=== PATIENT | female | born 1965 | race Caucasian/White ===

== ENCOUNTER 2020-10-05 10:09 | Outpatient (REF) | payer BC, SELFPAY ==
--- NOTE | 2020-10-05 10:14 | MM_ITS ---
EXAMINATION: MM SCREENING DIGITAL BREAST TOMOSYNTHESIS, BILATERAL CLINICAL INFORMATION: Screening. Asymptomatic. The lifetime risk of breast cancer based on the Tyrer-Cuzick Model is 7.6%. COMPARISON: Mammography: June 08, 2019 and studies dating back to June 12, 2011 TECHNIQUE: Digital breast tomosynthesis is performed in both the craniocaudal and mediolateral oblique views along with computer-aided detection (CAD). Synthesized 2D images are generated from the tomosynthesis. FINDINGS: The breasts are heterogeneously dense, which may obscure small masses (ACR BI-RADS breast composition Category c). There are no significant masses, abnormal calcifications, or other abnormalities. MM/MM tomosynthesis screening BI IMPRESSION: There are no significant changes from prior study. ASSESSMENT: BI-RADS 1: Negative RECOMMENDATION: Routine annual mammography screening. This patient's information was entered into a reminder system with a target due date for their next mammogram.
== END 2020-10-05 10:10 | disposition home or self-care (01) ==
LOC: HO.MAMMO 10:09
PROVIDERS: PCP Internal Medicine; Visit Provider Internal Medicine
DX: Z12.31 Encounter for screening mammogram for malignant neoplasm of breast (principal)
CPT/HCPCS: 77063; 77067

== ENCOUNTER 2021-11-20 11:35 | Outpatient (REF) | payer BC, SELFPAY ==
--- NOTE | ~2021-11-20 | MM_ITS ---
EXAMINATION: MM SCREENING DIGITAL BREAST TOMOSYNTHESIS, BILATERAL CLINICAL INFORMATION: Screening. Asymptomatic. The lifetime risk of breast cancer based on the Tyrer-Cuzick Model is 6%. COMPARISON: Mammography: 10/05/2020, 06/08/2019, 06/02/2018, 05/09/2017 TECHNIQUE: Digital breast tomosynthesis is performed in both the craniocaudal and mediolateral oblique views along with computer-aided detection (CAD). Synthesized 2D images are generated from the tomosynthesis. FINDINGS: There are scattered areas of fibroglandular density (ACR BI-RADS breast composition Category b). There are no significant masses, abnormal calcifications, or other abnormalities. There are scattered shifting fibroglandular parenchymal densities overall similar to prior studies. No developing density or architectural abnormality There are no significant changes. MM/MM tomosynthesis screening BI IMPRESSION: No mammographic evidence of malignancy. ASSESSMENT: BI-RADS 1: Negative RECOMMENDATION: Routine annual mammography screening. This patient's information was entered into a reminder system with a target due date for their next mammogram.
== END 2021-11-20 11:36 | disposition home or self-care (01) ==
LOC: HO.MAMMO 11:35
PROVIDERS: PCP Internal Medicine; Visit Provider Internal Medicine
DX: Z12.31 Encounter for screening mammogram for malignant neoplasm of breast (principal)
CPT/HCPCS: 77063; 77067

== ENCOUNTER 2022-01-19 09:31 | Outpatient (REF) | payer BC, SELFPAY ==
[2022-01-19 11:27] LABS: Hematocrit 43.9 % (37.0-47.0); Hemoglobin 14.4 g/dl (12.0-16.0); Mean Corpuscular HGB Conc 32.8 g/dl (31.0-35.0); Mean Corpuscular Hemoglobin 29.3 pg (27.0-33.0); Mean Corpuscular Volume 89.4 fL (80.0-98.0); Platelet Count 233 X10*3/uL (160-400); Red Blood Count 4.91 X10*6/uL (4.20-5.50); Red Cell Distribution Width 11.9 % (11.0-16.0); White Blood Count 3.6 X10*3/uL (4.8-10.8)
[2022-01-19 11:42] LABS: Alanine Aminotransferase 15 U/L (0-31); Albumin Level 4.6 g/dL (3.5-5.0); Alkaline Phosphatase 116 U/L (39-117); Anion Gap 12 (12-20); Aspartate Amino Transferase 19 U/L (5-31); Bilirubin Direct 0.2 mg/dL (0.0-0.5); Bilirubin Total 0.5 mg/dL (0.0-1.0); Blood Urea Nitrogen 23 mg/dL (9-16); Carbon Dioxide 26 mmol/L (22-29); Chloride 107 mmol/L (96-108); Cholesterol 196 mg/dL; Estimated Glomerular Filt Rate 54; Glucose Random 97 mg/dL (60-115); HDL Cholesterol 46 mg/dL; LDL Cholesterol Calculated 132 mg/dl; Potassium 4.5 mmol/L (3.3-5.1); Sodium 140 mmol/L (135-145); Triglycerides 93 mg/dL
[2022-01-19 12:08] LABS: Thyroid Stimulating Hormone 1.04 uIU/mL (0.32-4.0)
== END 2022-01-19 09:32 | disposition home or self-care (01) ==
LOC: HO.HMGCLDS 09:31
PROVIDERS: Visit Provider Internal Medicine
DX: Z00.00 Encounter for general adult medical examination without abnormal findings (principal); G35 Multiple sclerosis
CPT/HCPCS: 36415; 80048; 80061; 80076; 84443; 85027

== ENCOUNTER 2022-12-24 14:59 | Outpatient (REF) | payer BC, SELFPAY ==
--- NOTE | ~2022-12-24 | MM_ITS ---
EXAMINATION: MM SCREENING DIGITAL BREAST TOMOSYNTHESIS, BILATERAL CLINICAL INFORMATION: Screening. Asymptomatic. The lifetime risk of breast cancer based on the Tyrer-Cuzick Model is 6%. COMPARISON: Mammography: 11/20/2021, 10/05/2020, 05/19/2019 TECHNIQUE: Digital breast tomosynthesis is performed in both the craniocaudal and mediolateral oblique views along with computer-aided detection (CAD). Synthesized 2D images are generated from the tomosynthesis. FINDINGS: There are scattered areas of fibroglandular density (ACR BI-RADS breast composition Category b). There are no significant masses, abnormal calcifications, or other abnormalities. No architectural abnormality or developing density or significant change from prior studies. The axilla and skin contours are unremarkable. MM/MM tomosynthesis screening BI IMPRESSION: No mammographic evidence of malignancy. ASSESSMENT: BI-RADS 1: Negative RECOMMENDATION: Routine annual mammography screening. This patient's information was entered into a reminder system with a target due date for their next mammogram.
== END 2022-12-24 15:00 | disposition home or self-care (01) ==
LOC: HO.MAMMO 14:59
PROVIDERS: Visit Provider Internal Medicine
DX: Z12.31 Encounter for screening mammogram for malignant neoplasm of breast (principal)
CPT/HCPCS: 77063; 77067

== ENCOUNTER 2023-12-30 13:15 | Outpatient (REF) | payer BC, SELFPAY | END 2023-12-30 13:16 | disposition home or self-care (01) | LOC: HO.MAMMO 13:15 | PROVIDERS: Visit Provider Internal Medicine | DX: Z12.31 Encounter for screening mammogram for malignant neoplasm of breast (principal) | CPT/HCPCS: 77063; 77067 ==

== ENCOUNTER → 2023-12-30 14:30 | Outpatient (BNV) | payer BC, SELFPAY | PROVIDERS: Visit Provider Radiology Diagnostic Radiology | DX: Z12.31 Encounter for screening mammogram for malignant neoplasm of breast (principal) | CPT/HCPCS: 77063; 77067 ==

== ENCOUNTER 2024-01-23 15:28 | Outpatient (AMB) | payer BC, SELFPAY ==
--- NOTE | 2024-01-23 15:32 | MHC.PC.OV ---
Vital Signs 01/23/24 15:34 Height 5 ft 4 in Weight 124 lb 8 oz BMI 21.4 BP 110/66 Blood Pressure Location Lt brachial Position Sitting Pulse 88 Pulse Source Pulse Oximeter Pulse Oximetry (%) 99 Oxygen Delivery Method Room Air Intake Visit Reasons: Annual Exam Intake Note: Patient is here today for a physical. Drier Tender Required: No Chief Crew Scheduler: Present Accompanied by: Spouse Allergies metoclopramide [From Reglan] Allergy (Mild, Verified 01/26/24 10:12) RASH pantoprazole [From Protonix] Allergy (Mild, Verified 01/26/24 10:12) RASH pollen extracts [POLLEN] Allergy (Mild, Verified 01/26/24 10:12) SNEEZING,ITCHING,WATERY EYES adhesive tape Allergy (Unknown, Verified 01/26/24 10:12) RASH amoxicillin [Augmentin] Allergy (Unknown, Verified 01/26/24 10:12) vomiting bloody foam cephalexin [From KEFLEX] Allergy (Unknown, Verified 01/26/24 10:12) RASH, ITCHY clavulanic acid [Augmentin] Allergy (Unknown, Verified 01/26/24 10:12) vomiting bloody foam latex [LATEX] Allergy (Unknown, Verified 01/26/24 10:12) RASH shellfish derived Allergy (Unknown, Verified 01/26/24 10:12) RASH/NAUSEA & VOMITING Sulfa (Sulfonamide Antibiotics) Allergy (Unknown, Verified 01/26/24 10:12) rash sulfamethoxazole [From Bactrim] Allergy (Unknown, Verified 01/26/24 10:12) RASH trimethoprim [From Bactrim] Allergy (Unknown, Verified 01/26/24 10:12) RASH ciprofloxacin [From Cipro] Adverse Reaction (Unknown, Verified 01/26/24 10:12) SWEATING, LIGHT HEADEDNESS, NAUSEA, DOUBLE VISION Latex Allergy (Unknown, Uncoded 01/26/24 10:12) hives Medication List - Last Reconciled 01/26/24 by Keyur Hendrix MD albuterol sulfate 90 mcg/actuation (ProAir HFA) 2 puffs inhalation Q6H PRN ocrelizumab mg IV Tobacco use date assessed: 01/23/24 Dental Screening Dental Screen Date: 01/23/24 Did you have a dental visit in the last 12 months?: Yes Did you have a dental problem in the last 6 months where you did not have access to dental care?: No Was dental information given to patient?: Patient has dentist HPI Annual Exam HPI Details 58 year old female presents to the office requesting an annual physical. Multiple Sclerosis is stable with no neurological worsening in the past year. Continues Ocrevus infusions. Sleep patterns are stable. No incontinence to urine. Vision is stable with no worsening. Requesting a Cologard. [facility] Medical History Multiple sclerosis Surgical History History of biopsy History of D&C H/O right breast biopsy History of appendectomy History of section History of wisdom tooth extraction Family History Father Colon cancer Past heart attack Hypertension Mother Hyperlipidemia Brother No problems noted. Sister No problems noted. Social History Housing: House Alcohol intake: never Patient Tobacco Use Status: Never used Tobacco e-Cigarette/Vaping Use: Never Used Second Hand Smoke Exposure: No service: No Current occupational status: disabled Cognitive needs: Yes (cane) Hearing needs: No Vision needs: No Questionnaire PHQ-9 Over the last 2 weeks, how often have you been bothered by any of the following problems? 1. Little interest or pleasure in doing things: not at all 2. Feeling down, depressed, or hopeless: not at all 3. Trouble falling or staying asleep, or sleeping too much: not at all 4. Feeling tired or having little energy: not at all 5. Poor appetite or overeating: not at all 6. Feeling bad about yourself - or that you are a failure or have let yourself or your family down: not at all 7. Trouble concentrating on things, such as reading the newspaper or watching television: not at all 8. Moving or speaking so slowly that other people could have noticed. Or the opposite - being so fidgety or restless that you have been moving around a lot more than usual: not at all 9. Thoughts that you would be better off or of hurting yourself in some way: not at all Total score: 0 Depression Screening Interpretation: Negative Depression Screening Done: Yes Source: Developed by Miri Luna Kurt Kroenke and colleagues, with an educational nicolette from [employer]. Thrive Questionnaire Date Thrive assessed: 01/23/24 I am a: Patient What is your living situation today?: I have a steady place to live Within the past 12 months, did the food you bought not last and you didn't have the money to get more?: Never true Within the past 12 months, did you worry whether your food would run out before you got money to buy more?: Never true Do you have trouble paying for medicines?: No Do you have trouble getting transportation to medical appointments?: No Do you have trouble paying your heating and electricity bill?: No Do you have trouble taking care of your child, family member or friend?: No Do you have trouble with day-to-day activities such as bathing, preparing meals, shopping, managing finances, etc.?: No Are you currently unemployed and looking for a job?: No Are you interested in more education?: No Currently or been in a relationship where the following occur: no concerns reported THRIVE Score: 0 AUDIT C Alcohol Use Questionnaire (AUDIT-C) 1. How often do you have a drink containing alcohol?: Never Total Score: 0 CHRISTIANO-7 AMB Questionnaire CHRISTIANO-7 Date CHRISTIANO - 7 assessed: 01/23/24 Feeling nervous, anxious, or on edge: 0 = Not at all Not being able to stop or control worryin = Not at all Worrying too much about different things: 0 = Not at all Trouble relaxin = Not at all Being so restless that it is hard to sit still: 0 = Not at all Becoming easily annoyed or irritable: 0 = Not at all Feeling afraid as if something awful might happen: 0 = Not at all Total CHRISTIANO-7 score (0-4 normal; 5-9 mild; 10-14 moderate; 15-21 severe): 0 Source: Developed by Miri Luna Kurt Kroenke and colleagues, with an educational nicolette from [employer]. Physical exam (Primary Care) Vital Signs: Last Vital Signs Pulse 88 01/23/24 15:34 BP 110/66 01/23/24 15:34 Pulse Ox 99 01/23/24 15:34 Oxygen Delivery Method Room Air 01/23/24 15:34 Care Plan Goal for BP management: BP is in range. BMI result Body Mass Index 21.4 Tobacco/Smoking Status: Tobacco use Status Tobacco use date assessed 01/23/24 01/23/24 15:39 Patient Tobacco Use Status Never used Tobacco 01/23/24 15:39 e-Cigarette/Vaping Use Never Used 01/23/24 15:39 PHQ-9: PHQ-9 Score PHQ-9: Total score 0 01/23/24 15:39 Depression Screening Interpretation: Negative Thrive Assessment: Date of Thrive Assessment Date Thrive assessed 01/23/24 01/23/24 15:39 Currently or been in a relationship where the following occur: no concerns reported Advance Care Planning discussion: Exists, not on file Date of discussion: 01/23/24 Forms completed: Health Care Proxy and MOLST Time spent: 1-15 minutes, not on file Const Other: Ambulates using a cane General: cooperative and healthy appearing Nutritional Appearance: well nourished Orientation/consciousness: patient oriented x3 Limitations: no limitations HENMT Head: Yes normal to inspection Eyes General: appearance normal, both eyes and all related structures Neck Neck: Yes normal visual inspection Chest Chest palpation & inspection: normal palpation of entire chest wall Resp Effort & Inspection: normal respiratory effort Neuro General: patient oriented x3 Assessment and Plan Assessment & Plan (1) Multiple sclerosis: Code(s): G35 - Multiple sclerosis Plan: Condition is stable. Continue to see the neurologist and Ocrevus infusion. (2) Annual physical exam: Code(s): Z00.00 - Encounter for general adult medical examination without abnormal findings Plan: Cologard ordered. Upto date on mammogram. Orders: Orders Basic Metabolic Panel 01/23/24 G35 - Multiple sclerosis Complete Blood Count no Diff 01/23/24 G35 - Multiple sclerosis Lipid Panel 01/23/24 G35 - Multiple sclerosis UA and rflx microscopic 01/23/24 G35 - Multiple sclerosis Liver Panel 01/23/24 G35 - Multiple sclerosis Thyroid Stimulating Hormone 01/23/24 G35 - Multiple sclerosis Referrals Cologuard Test Z12.11 - Encounter for screening for malignant neoplasm of colon Coding Level of Care Code Est Pt Prev Care 40-64y(43858) Diagnoses Multiple sclerosis G35 Annual physical exam Z00.00 Additional Codes Vital Signs *Quality* - Advance Care Planning discussion: Exists, not on file ([id number]) Vital Signs *Quality* - Time spent: 1-15 minutes, not on file ([id number])
[2024-01-23 15:34] VITALS: BP 110/66; PULSE 88; O2SAT 99; BMI 21.4
== END 2024-01-23 15:54 | disposition home or self-care (01) ==
PROVIDERS: Visit Provider Internal Medicine
DX: G35 Multiple sclerosis (principal); Z00.00 Encounter for general adult medical examination without abnormal findings
CPT/HCPCS: 1123F; 1124F; 99396

== ENCOUNTER 2024-01-29 10:59 | Outpatient (AMB) | payer BC, SELFPAY ==
--- NOTE | 2024-01-29 11:04 | AM.OFFWIN_ITS ---
Intake Vital Signs 01/29/24 11:05 Height 5 ft 4 in Weight 124 lb BMI 21.3 BP 130/70 Blood Pressure Location Lt brachial Position Sitting Pulse 90 Pulse Source Pulse Oximeter Temp 97.8 F Temp Source Temporal Artery Scan Pulse Oximetry (%) 98 Oxygen Delivery Method Room Air Intake Visit Reasons: EST/right foot pain (lobby) Intake Note: pt is here today for rt foot pain started saturday Patient Tobacco Use Status: Never used Tobacco Allergies metoclopramide [From Reglan] Allergy (Mild, Verified 01/29/24 11:09) RASH pantoprazole [From Protonix] Allergy (Mild, Verified 01/29/24 11:09) RASH pollen extracts [POLLEN] Allergy (Mild, Verified 01/29/24 11:09) SNEEZING,ITCHING,WATERY EYES adhesive tape Allergy (Unknown, Verified 01/29/24 11:09) RASH amoxicillin [Augmentin] Allergy (Unknown, Verified 01/29/24 11:09) vomiting bloody foam cephalexin [From KEFLEX] Allergy (Unknown, Verified 01/29/24 11:09) RASH, ITCHY clavulanic acid [Augmentin] Allergy (Unknown, Verified 01/29/24 11:09) vomiting bloody foam latex [LATEX] Allergy (Unknown, Verified 01/29/24 11:09) RASH shellfish derived Allergy (Unknown, Verified 01/29/24 11:09) RASH/NAUSEA & VOMITING Sulfa (Sulfonamide Antibiotics) Allergy (Unknown, Verified 01/29/24 11:09) rash sulfamethoxazole [From Bactrim] Allergy (Unknown, Verified 01/29/24 11:09) RASH trimethoprim [From Bactrim] Allergy (Unknown, Verified 01/29/24 11:09) RASH ciprofloxacin [From Cipro] Adverse Reaction (Unknown, Verified 01/29/24 11:09) SWEATING, LIGHT HEADEDNESS, NAUSEA, DOUBLE VISION Latex Allergy (Unknown, Uncoded 01/26/24 10:12) hives Do you need a note to return to daycare/school/sports/work: No HPI HPI Comments History of Present Illness Details 58 y/o female patient who presents to [facility] with c/o right foot pain. Reports Saturday she was going down the stairs and tripped and twisted her foot. Reports swelling and tenderness. She has not taken any Pain medications because she is allergic to most pain medications. [facility] Medical History Multiple sclerosis Surgical History History of biopsy History of D&C H/O right breast biopsy History of appendectomy History of section History of wisdom tooth extraction Family History Father Colon cancer Past heart attack Hypertension Mother Hyperlipidemia Brother No problems noted. Sister No problems noted. Social History Housing: House Alcohol intake: never Patient Tobacco Use Status: Never used Tobacco e-Cigarette/Vaping Use: Never Used Second Hand Smoke Exposure: No service: No Current occupational status: disabled Cognitive needs: Yes (cane) Hearing needs: No Vision needs: No Review of Systems Const All systems reviewed & are unremarkable except as noted in HPI and below Physical Exam Vital Signs: Last Vital Signs Temp 97.8 F 01/29/24 11:05 Pulse 90 01/29/24 11:05 BP 130/70 01/29/24 11:05 Pulse Ox 98 01/29/24 11:05 Oxygen Delivery Method Room Air 01/29/24 11:05 BMI result Body Mass Index 21.3 Const General: comfortable and no acute distress Orientation/consciousness: patient oriented x3 Neuro Other: Walks with a cane - h/o MS General: patient oriented x3 and moves all extremities Extrem Right lower extremity: ankle Details: normal to inspection, tenderness, no edema and normal ROM and foot Details: normal capillary refill, normal to inspection, tenderness and toes with normal ROM; no unusual warmth, edema noted and no ecchymosis Left lower extremity: normal to inspection and full ROM Psych Speech and movement: Normal speech and movement present Assessment & Plan Assessment & Plan (1) Right foot pain: Code(s): M79.671 - Pain in right foot Plan: - Xray right foot - IceHot - Sprain/Strain Orders: Orders XR foot RT min 3V Today M79.671 - Pain in right foot Coding Level of Care Code Est Pt Level 3 (69865) Diagnoses Right foot pain M79.671 Time Spent (min) 15
[2024-01-29 11:05] VITALS: BP 130/70; PULSE 90; TEMP 36.6; O2SAT 98; BMI 21.3
== END 2024-01-29 12:01 | disposition home or self-care (01) ==
PROVIDERS: PCP Internal Medicine; Visit Provider Nurse Practitioner Family
DX: M79.671 Pain in right foot (principal)
CPT/HCPCS: 99213

== ENCOUNTER 2024-01-29 11:35 | Outpatient (REF) | payer BC, SELFPAY ==
--- NOTE | ~2024-01-29 | XR_ITS ---
EXAMINATION: XR FOOT, RIGHT CLINICAL INFORMATION: Right foot pain following a twisting injury. COMPARISON: None available. TECHNIQUE: AP, lateral, and oblique views of the right foot. FINDINGS: The bones and soft tissues are normal. No fracture. Alignment is anatomic. Joint spaces are maintained. XR/XR foot RT min 3V IMPRESSION: Unremarkable examination.
== END 2024-01-29 11:36 | disposition home or self-care (01) ==
LOC: HO.HMGCX 11:35
PROVIDERS: Visit Provider Nurse Practitioner Family
DX: M79.671 Pain in right foot (principal)
CPT/HCPCS: 73630

== ENCOUNTER 2024-02-25 10:39 | Outpatient (AMB) | payer BC, SELFPAY ==
--- NOTE | 2024-02-25 10:51 | A.OFFPC_ITS ---
Vital Signs 02/25/24 10:52 Height 5 ft 4 in Weight 126 lb BMI 21.6 BP 120/64 Blood Pressure Location Lt brachial Position Sitting Pulse 72 Pulse Source Pulse Oximeter Pulse Oximetry (%) 99 Oxygen Delivery Method Room Air Intake Visit Reasons: R foot injury/ Podiatry referral Intake Note: Patient is here to follow up on Right foot injury a month ago, requesting referral to Podiatry. Supervisor Crack Off Required: No Parts Remover: Present Accompanied by: Spouse Allergies metoclopramide [From Reglan] Allergy (Mild, Verified 02/28/24 12:32) RASH pantoprazole [From Protonix] Allergy (Mild, Verified 02/28/24 12:32) RASH pollen extracts [POLLEN] Allergy (Mild, Verified 02/28/24 12:32) SNEEZING,ITCHING,WATERY EYES adhesive tape Allergy (Unknown, Verified 02/28/24 12:32) RASH amoxicillin [Augmentin] Allergy (Unknown, Verified 02/28/24 12:32) vomiting bloody foam cephalexin [From KEFLEX] Allergy (Unknown, Verified 02/28/24 12:32) RASH, ITCHY clavulanic acid [Augmentin] Allergy (Unknown, Verified 02/28/24 12:32) vomiting bloody foam latex [LATEX] Allergy (Unknown, Verified 02/28/24 12:32) RASH shellfish derived Allergy (Unknown, Verified 02/28/24 12:32) RASH/NAUSEA & VOMITING Sulfa (Sulfonamide Antibiotics) Allergy (Unknown, Verified 02/28/24 12:32) rash sulfamethoxazole [From Bactrim] Allergy (Unknown, Verified 02/28/24 12:32) RASH trimethoprim [From Bactrim] Allergy (Unknown, Verified 02/28/24 12:32) RASH ciprofloxacin [From Cipro] Adverse Reaction (Unknown, Verified 02/28/24 12:32) SWEATING, LIGHT HEADEDNESS, NAUSEA, DOUBLE VISION Latex Allergy (Unknown, Uncoded 02/28/24 12:32) hives Medication List - Last Reconciled 02/28/24 by Keyur Hendrix MD albuterol sulfate 90 mcg/actuation (ProAir HFA) 2 puffs inhalation Q6H PRN ocrelizumab mg IV Tobacco use date assessed: 02/25/24 Dental Screening Dental Screen Date: 01/23/24 HPI R foot injury/ Podiatry referral HPI Details 58-year-old female presents to the [facility] to discuss her medical condition. One month ago, while climbing the stairs at home she hit her right foot against the riser. The floor and stairs were carpeted. Subsequently patient has been feeling pain on the top of her foot. She was seen in the urgent care center, x- rays were negative. Patient continues to have pain when she bears weight on the right foot. [facility] Medical History Multiple sclerosis Surgical History History of biopsy History of D&C H/O right breast biopsy History of appendectomy History of section History of wisdom tooth extraction Family History Father Colon cancer Past heart attack Hypertension Mother Hyperlipidemia Brother No problems noted. Sister No problems noted. Social History Housing: House Alcohol intake: never Patient Tobacco Use Status: Never used Tobacco e-Cigarette/Vaping Use: Never Used Second Hand Smoke Exposure: No service: No Current occupational status: disabled Cognitive needs: Yes (cane) Hearing needs: No Vision needs: No Questionnaire Thrive Questionnaire Date Thrive assessed: 01/23/24 CHRISTIANO-7 AMB Questionnaire CHRISTIANO-7 Date CHRISTIANO - 7 assessed: 01/23/24 Source: Developed by Drs. Ludin James, Miri Carrion, Mina Paul and colleagues, with an educational nicolette from [employer]. Physical exam (Primary Care) Vital Signs: Last Vital Signs Pulse 72 02/25/24 10:52 BP 120/64 02/25/24 10:52 Pulse Ox 99 02/25/24 10:52 Oxygen Delivery Method Room Air 02/25/24 10:52 BMI result Body Mass Index 21.6 Tobacco/Smoking Status: Tobacco use Status Tobacco use date assessed 02/25/24 02/25/24 10:57 Patient Tobacco Use Status Never used Tobacco 02/25/24 10:57 e-Cigarette/Vaping Use Never Used 02/25/24 10:57 Thrive Assessment: Date of Thrive Assessment Date Thrive assessed 01/23/24 02/25/24 10:57 Extrem Other: Right foot: Minimal discomfort over the dorsum of the foot. No bruising. All toes can be moved independently without discomfort. Discomfort present over the calcaneal surface. Assessment and Plan Assessment & Plan (1) Contusion, foot: Code(s): S90.30XA - Contusion of unspecified foot, initial encounter Plan: Patient reports that she does not do well with nonsteroidals. I reviewed her x- ray from the urgent care center. Patient does not have any pain when she has not weight-bearing. I suggested that she keep her foot elevated when at home or use a boot. I offered her a boot, patient reported that she has a boot from a previous injury. If symptoms do not improve in 4 weeks, patient was advised to follow-up here. Coding Level of Care Code Est Pt Level 4 (39656) Complex EM visit Add On G2211 Diagnoses Contusion, foot S90.30XA
[2024-02-25 10:52] VITALS: BP 120/64; PULSE 72; O2SAT 99; BMI 21.6
== END 2024-02-25 11:39 | disposition home or self-care (01) ==
PROVIDERS: PCP Internal Medicine; Visit Provider Internal Medicine
DX: S90.30XA Contusion of unspecified foot, initial encounter (principal)
CPT/HCPCS: 99214

== ENCOUNTER 2024-03-05 08:07 | Outpatient (REF) | payer BC, SELFPAY ==
[2024-03-05 10:59] LABS: Hematocrit 41.5 % (37.0-47.0); Hemoglobin 14.1 g/dl (12.0-16.0); Mean Corpuscular Hemoglobin 30.3 pg (27.0-33.0); Mean Corpuscular Volume 89.2 fL (80.0-98.0); Platelet Count 202 X10*3/uL (160-400); Red Blood Count 4.65 X10*6/uL (4.20-5.50); Red Cell Distribution Width 12.2 % (11.0-16.0); White Blood Count 3.4 X10*3/uL (4.8-10.8)
[2024-03-05 11:04] LABS: Appearance Urine Clear; Color Urine Yellow; Glucose Urine UA Negative (Negative); Leukocyte Esterase Urine Negative (Negative); Nitrite Urine Negative (Negative); PH 6.5 (5.0-9.0); Specific Gravity - Urine 1.015 (1.005-1.025); UMIC TRIGGER UA YES; Urine Blood Trace (Negative); Urine Ketones Negative (Negative); Urine Protein Negative (Neg-Trace)
[2024-03-05 11:25] LABS: Alanine Aminotransferase 13 U/L (0-31); Albumin Level 4.4 g/dL (3.5-5.0); Alkaline Phosphatase 126 U/L (39-117); Anion Gap 11 (12-20); Aspartate Amino Transferase 18 U/L (5-31); Bilirubin Direct 0.1 mg/dL (0.0-0.5); Bilirubin Total 0.4 mg/dL (0.0-1.0); Blood Urea Nitrogen 18 mg/dL (9-16); Calcium 9.8 mg/dL (8.4-10.2); Carbon Dioxide 26 mmol/L (22-29); Chloride 109 mmol/L (96-108); Cholesterol 193 mg/dL (<200); Estimated Glomerular Filt Rate > 60; Glucose Random 87 mg/dL (60-115); HDL Cholesterol 42 mg/dL (>40); LDL Cholesterol Calculated 138 mg/dL (<100); Sodium 142 mmol/L (135-145); Total Protein 6.6 g/dL (6.5-8.0); Triglycerides 66 mg/dL (<150)
[2024-03-05 11:41] LABS: Thyroid Stimulating Hormone 1.57 uIU/mL (0.32-4.0)
[2024-03-05 11:42] LABS: Bacteria Urine None Seen (None Seen); Hyaline Casts Urine 0-2 /LPF (0-2); RBC Urine 0-2 /HPF (0-2); Squamous Epithelial Cell Urine 0-2 /HPF (0-2); WBC Urine 0-5 /HPF (0-5)
== END 2024-03-05 08:08 | disposition home or self-care (01) ==
LOC: HO.10HDL 08:07
PROVIDERS: Visit Provider Internal Medicine
DX: G35 Multiple sclerosis (principal)
CPT/HCPCS: 36415; 80048; 80061; 80076; 81001; 81003; 84443; 85027

== ENCOUNTER → 2025-01-15 16:00 | Outpatient (BNV) | payer BC, SELFPAY | PROVIDERS: PCP Internal Medicine; Visit Provider Internal Medicine | DX: Z12.31 Encounter for screening mammogram for malignant neoplasm of breast (principal) | CPT/HCPCS: 77063; 77067 ==

== ENCOUNTER 2025-01-15 16:04 | Outpatient (REF) | payer BC, SELFPAY ==
--- OUTSIDE RECORDS SUMMARY | 2025-01-15 16:06 | XMS_ITS ---
Author Name [facility] Organization Unknown Care Team Organization Name Specialty Phone Email Start Date End [facility]
--- OUTSIDE RECORDS SUMMARY | 2025-01-15 16:06 | XMS_ITS | Encounter Summary ---
Author Organization [facility] Address [address] [place] [address] Care Team Providers Care Chef Name Role Phone Unavailable Primary Care Provider Unavailabl e Encounter Details Date Type Department Care Team (Late st Contact Info) Description 05/28/2023 Scanned Document [facility] GENERAL SURG SCAN General Surgery, Scan Social History Tobacco Use Types Packs/Day Years Used Date Smoking Tobacco: Never Assessed Comments Unknown Sex and Gender Information Value Date Recorded Sex Assigned at Not on file Legal Sex Female 6:59 PM EST Gender Identity Not on file Sexual Orientation Not on file documented as of this encounter Plan of Treatment Not on file documented as of this encounter Visit Diagnoses Not on filedocumented in this encounter
--- OUTSIDE RECORDS SUMMARY | 2025-01-15 16:06 | XMS_ITS | Encounter Summary ---
Author Organization [facility] Address [address] [place] [address] Care Team Providers Care Manager Of Data Name Role Phone Unavailable Primary Care Provider Unavailabl e Encounter Details Date Type Department Care Team (Late st Contact Info) Description 02/19/2019 Scanned Document [address] [id number] Keyur Hendrix MD Social History Tobacco Use Types Packs/Day Years [...]
--- OUTSIDE RECORDS SUMMARY | 2025-01-15 16:07 | XMS_ITS | Encounter Summary ---
Author Organization [facility] Address [address] [place] [address] Care Team Providers Care Hotel Valet Attendant Name Role Phone Keyur Hendrix Primary Care Provider [phone] Encounter Details Date Type Department Care Team (Late st Contact Info) Description 07/18/2021 myChart Message [facility] PB Revenue Cycle Management [address] [place] [address] Mychart, Generic Provider [address] [place] [address] payment plan Social History Tobacco Use Types Packs/Day Years Used Date Smoking Tobacco: Never Smokeless Tobacco: Never Comments:: Comments Unknown Sex and Gender Information Value Date Recorded Sex Assigned at Female 01/30/2021 12:07 PM EDT Legal Sex Female 12:40 PM EDT Gender Identity Female 01/30/2021 12:07 PM EDT Sexual Orientation Straight 01/30/2021 12 :07 PM EDT documented as of this encounter Plan of Treatment Upcoming Encounters Date Type Department Care Team (Late st Contact Info) Description 02/11/2025 8:00 AM EDT Infusion [facility] [address] [place] [address] 04/20/2025 9:00 AM EDT Office Visit [facility] [address] [place] [address] Instructional Technology Director: Chet Villa MD [address], [place] [id number] documented as of this encounter Visit Diagnoses Not on filedocumented in this encounter Care Teams Hotel Valet Attendant Relationship Specialty Start Date End Date Keyur Hendrix [address] [place] [address] [phone] PCP - General Internal Medicine 11/12/18 documented as of this encounter
--- OUTSIDE RECORDS SUMMARY | 2025-01-15 16:07 | XMS_ITS | Encounter Summary ---
Author Organization [facility] Address [address] [place] [address] Care Team Providers Care Transportation Agent Name Role Phone Keyur Hendrix Primary Care Provider +1- [phone] Encounter Details Date Type Department Care Team (Late st Contact Info) Description 10/19/2016 Orders Only [facility] Building [address] [place] [address] 11359 González Bass MD PhD [address] [place] [address] 32611 Social History Tobacco Use Types Packs/Day Years [...] Info) Description 02/11/2025 8:00 AM EDT Infusion [facility] Building Infusion Clinic [address] [place] [address] 55425 04/20/2025 9:00 AM EDT Office Visit [facility] Multiple Sclerosis [facility] [address] [place] [address] [phone] Pole Shaver: Chet Villa MD [address] [place] [address] [phone] documented as of this encounter Visit Diagnoses Not on filedocumented in this encounter Additional Health Concerns Infection Onset Date Last Indicated Resolved Time COVID-19 - Suspected infection 02/04/2020 02/04/2020 02/04/2020 8:55 PM EDT documented as of this encounter Care Teams Transportation Agent Relationship Specialty Start Date End Date Keyur Hendrix [address] [place] [address] [phone] PCP - General Internal Medicine 11/12/18 documented as of this encounter
--- OUTSIDE RECORDS SUMMARY | 2025-01-15 16:07 | XMS_ITS | Encounter Summary ---
Author Organization [facility] Address [address] [place] [address] Care Team Providers Care Hall Manager Name Role Phone Keyur Hendrix Primary Care Provider +1- [phone] Encounter Details Date Type Department Care Team (Late st Contact Info) Description 10/05/2021 Orders Only [facility] [address] [place] [address] [phone] Mor Hardin [facility] Social History Tobacco Use Types Packs/Day Years [...] Info) Description 02/11/2025 8:00 AM EDT Infusion [facility] Infusion Clinic [address] [place] [address] 765[address] 04/20/2025 9:00 AM EDT Office Visit [facility] Multiple Sclerosis Clinic [address] [place] [address] 88623 Fountain Waitress/Waiter: Chet Villa MD [address] [place], [place] [phone] documented as of this encounter Visit Diagnoses Not on filedocumented in this encounter Care Teams Hall Manager Relationship Specialty Start Date End Date Keyur Hendrix [address] [place] [address] [phone] PCP - General Internal Medicine 11/12/18 documented as of this encounter
--- OUTSIDE RECORDS SUMMARY | 2025-01-15 16:07 | XMS_ITS | Referral Summary ---
Author Organization [facility] Address [address] [id number] Care Team Providers Care Healthcare Technician Name Role Phone Keyur Hendrix Primary Care Provider +1- [phone] Encounters Date Type Department Care Team Description 12/04/2024 myChart Message [facility] Sclerosis [facility] [address] [place] [address] [phone] Casing Fluid Tender: Coco Rodriguez MD Following up 11/30/2024 Telephone [facility] [address] [place] [address] [phone] Casing Fluid Tender: Surekha Sullivan LPN 11/18/2024 myChart Message [facility] Building Neurology Clinic [address] [place] [address] [phone] Mychart, Generic Provider MRI schedule from Last 3 Months Allergies Active Allergy Reactions Criticality Noted Date Comments Adhesive Tape-Silicones Rash 11/29/2016 Amoxicillin-Pot Clavulanate Cough up blood 11/29/2016 Confirmed with pt over phone Butalbital-Acetaminophen Rash 06/18/2017 Cephalexin Unknown 11/29/2016 Ciprofloxacin Rash,Diplopia 11/29/2016 Gadolinium-Containing Contrast Media Hives 06/27/2022 Latex Rash 06/18/2017 Latex, Natural Rubber Unknown 11/29/2016 Pantoprazole Rash 11/29/2016 Sulfamethoxazole-Trimethop rim Rash High 11/29/2016 Medications albuterol (PROAIR HFA) 90 mcg inhaler ProAir HFA 108 (90 Base) MCG/ACT Inhalation Aerosol Solution INHALE 2 PUFFS EVERY 4 HOURS NEEDED Quantity: 1; Refills: 11 HERIBERTO DIAZ M.D.; Started 03-Aug-2012 Active 2 Active famotidine (PEPCID) 20 mg tablet Take 1 tablet (20 mg total) by mouth 2 times a day. 6 tablet 03/24/2021 2:53 PM EDT 1 Active ocrelizumab (Ocrevus) 30 mg/mL injection solutionIndica tions:Multiple sclerosis (HCC) Infuse 20 mL (600 mg total) intravenously every 5 months. 20 mL 1 09/04/2024 9:07 AM EST 4 Active predniSONE (DELTASONE) 10 mg tabletIndicati ons:Multiple sclerosis (HCC) Take one tablet by mouth the evening prior to Ocrevus infusion and one tablet by mouth the morning of infusion 2 tablet 4 Active Active Problems Patient Care Coordination No te Formatting of this note migh t be different from the original. Paula Milesdemetrio had her biopsy done at [facility] general surgery.A copy of the report is on your mailbox. Thank you Problem Noted Date Diagnosed Date Right foot pain 03/25/2024 Sebaceous cyst 05/27/2023 Assessment & Plan (10/23/2023 4:19 PM EST): PLAN: 1. Continue to follow-up with dermatology. Assessment & Plan (05/27/2023 11:32 AM EDT): Left posterior thigh sebaceous cyst, approximately 2 x 2 x 3 cm. Mild overlying cellulitis without mature abscess. Patient was advised to perform warm compresses followed by gentle rubbing the area with a sponge pad and antibacterial soap. Gentle manual expression can then be applied to attempt to evacuate the sebum. Surgery is usually unnecessary for this. Patient has immune deficiency and is on prednisone prior to infusion for MS. She is at increased risk for wound complications after surgery, thus she should avoid any unnecessary procedures and surgeries if possible. Follow-up as needed. Gait abnormality 06/23/2020 Assessment & Plan (09/21/2021 12:10 PM EST): PLAN: 1. We discussed physical therapy. Assessment & Plan (02/02/2021 10:36 AM EDT): PLAN: 1. We discussed physical therapy. Assessment & Plan (06/23/2020 11:37 AM EDT): PLAN: 1. We discussed physical therapy. Toxicity associated with cytokine release 2016 Assessment & Plan (07/01/2017 3:27 PM EDT): Pt. Developed infusion reactions with rash that required only benadryl after Ocrevus infusions in May 2017. She is doing well now. 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 We we will continue with ocrelizumab infusions every 5 months. 2. We will obtain MRI of the cervical spine this year. 3. Continue with physical activity. 4. We will obtain immunoglobulin levels to assess her immune status on ocrelizumab. Assessment & Plan (03/18/2023 12:42 PM EDT): PLAN: 1. We we will continue with ocrelizumab infusions every 5 months. 2. We will obtain MRI of the cervical spine next year. 3. Continue with physical activity. 4. We will obtain immunoglobulin levels to assess her immune status on ocrelizumab. Assessment & Plan (09/20/2021 3:16 PM EST): PLAN: 1. We we will continue with ocrelizumab infusions every 5 months and will monitor closely for new/worsening symptoms. We will again discuss escalation of therapy if there is changes on physical examination, symptoms as well as MRIs. 2. We will obtain MRI of the cervical spine in October to evaluate radiological study of her disease due to new lesion seen on prior MRI. 3. Continue with physical activity. Assessment & Plan (02/02/2021 10:36 AM EDT): PLAN: 1. We will continue with Ocreluzimab infusions every 5 months due to goof response to treatment and stability of symptoms. 2. We will obtain MRI of the brain and cervical spine this year to evaluate radiological study of her disease. 3. Continue with physical activity. Assessment & Plan (06/23/2020 11:36 AM EDT): PLAN: 1. We discussed decreasing the interval of ocrelizumab to every 5 months. 2. We also discussed proceeding with 1 g of IV methylprednisolone with the next infusion or earlier treatment if symptoms progress. 3. We will obtain MRI of the brain and cervical spine next year to evaluate radiological study of her disease. 4. Continue with vitamin D supplementation. Assessment & Plan (11/12/2018 11:03 AM EST): Continue current Ocrevus infusion schedule. Prednisone 10 mg the night prior and the morning of. Follow up in [facility] Center in 4 months. Assessment & Plan (07/09/2018 12:37 PM EDT): Continue with current infusion schedule of Ocrevus MRI December 2018 Follow-up in MS clinic in 4 months Prednisone 10 mg oral the evening before Ocrevus and the morning of the infusion. Referral for outpatient PT evaluation for gait training and cane training. Assessment & Plan (03/05/2018 11:15 AM EDT): Keep current Ocrevus schedule Plan for follow up MRI in December 2018 Follow up in 4 months Assessment & Plan (12/11/2017 11:41 AM EDT): Continue Ocrevus infusions as scheduled- will re-schedule as possible depending on biopsy results. MRI brain and C-spine as outpatient Refill for B12 injections sent to pharmacy. Follow up in 4 months Assessment & Plan (08/07/2017 10:53 AM EST): Continue Ocrevus infusions per current schedule Monitor clinically for possible focal post-infusion reactions Follow up in 4 months. Assessment & Plan (07/01/2017 10:23 PM EDT): RRMS Patient received the first Ocrevus 2 infusions. She developed few days after infusion a short transitory left leg sensory-motor lasted 10-15min resolved completely and one episode of diplopia that resolved spontaneously after few min. Most likely this are cytokine release and transmission block in the aresa of prior demyelination. Less likely that this are signs of active relapse. Plan: - monitor clinically. - no need for MRI at this time. - she may have same phenomena with next infusions. - educate patient on infusion related reactions. 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 Continue with vitamin D supplementation. Assessment & Plan (03/18/2023 12:42 PM EDT): PLAN: 1. Continue with vitamin D supplementation. Assessment & Plan (09/20/2021 3:17 PM EST): PLAN: 1. Continue with vitamin D supplementation. Assessment & Plan (02/02/2021 10:36 AM EDT): PLAN: 1. Continue with vitamin D supplementation. Assessment & Plan (06/23/2020 11:36 AM EDT): PLAN: 1. Continue with vitamin D supplementation. Nonspecific immunological findings 09/11/2011 Social History Tobacco Use Types Packs/Day Years Used Date Smoking Tobacco: Never Smokeless Tobacco: Never Tobacco Cessation:Counseling Given: Not Answered Comments:: Comments Unknown Sex and Gender Information Value Date Recorded Sex Assigned at Female 01/30/2021 12:07 PM EDT Legal Sex Female 12:40 PM EDT Gender Identity Female 01/30/2021 12:07 PM EDT Sexual Orientation Straight 01/30/2021 12 :07 PM EDT Last Filed Vital Signs Vital Sign Reading Time Taken Comments Blood Pressure 144/68 09/29/2024 3:55 PM EST Pulse 73 09/29/2024 3:55 PM EST Temperature 36.5 ??C (97.7 ??F) 09/10/2024 2:44 PM ES T Respiratory Rate 18 09/10/2024 2:44 PM EST Oxygen Saturation 96% 09/10/2024 2:44 PM EST Inhaled Oxygen Concentration - - Weight 55.3 kg (122 lb 0.4 oz) 09/10/2024 8:22 AM EST Height 161 cm (5' 3.39 ) 03/18/2023 10:00 AM EDT Body Mass Index 21.35 03/18/2023 10:00 AM EDT Plan of Treatment Upcoming Encounters Date Type Department Care Team (Late st Contact Info) Description 02/11/2025 8:00 AM EDT Infusion [facility] Building Infusion Clinic [address] [place] [address] 80083 04/20/2025 9:00 AM EDT Office Visit [facility] Multiple Sclerosis [facility] [address] [place] [address] 84884 Casing Fluid Tender: Chet Villa MD [address] [place] [address] 50906 Procedures * Due to [facility] law, this organization might not be sharing negative HIV tests. Procedure Name Priority Date/Time Associated Diagnosis Comments HEPATITIS PANEL, ACUTE Routine 04/10/2017 12:22 PM EDT CD4 COUNTS Routine 07/04/2015 2:16 PM EDT from Last 3 Months or Most Recently Relevant to Health Maintenance Results * Due to [facility] law, this organization might not be sharing negative HIV tests. * Hepatitis Panel, Acute (04/10/2017 12:22 PM EDT) Hepatitis A IgM NON-REACTI VE NON-REACT [facility] Hepatitis B Surface Antigen NON-REACTI VE NON-REACT [facility] Hepatitis B Core Antibody NON-REACTI VE NON-REACT [facility] Hepatitis C Antibody NON-REACTI VE NON-REACT [facility] Signal To Cut-Off 0.01 <1.00 [facility] 04/10/2017 12:2 2 PM EDT 04/10/2017 1:14 PM EDT us Norman Scales MD PhD LAB BLOOD ORDERABLES Cherelle argueta Result [facility] [address] [facility] [address] Floor, [place] [address], [place] [phone] from Last 3 Months or Most Recently Relevant to Health Maintenance Insurance [facility] HMO/POS Care Teams Healthcare Technician Relationship Specialty Start Date End Date Keyur Hendrix [address] [place] [address] PCP - General Internal Medicine 11/12/18
--- OUTSIDE RECORDS SUMMARY | 2025-01-15 16:07 | XMS_ITS | Encounter Summary ---
Author Organization [facility] Address [address] [place] [address] Care Team Providers Care Publishing Director Name Role Phone Keyur Hendrix Primary Care Provider +1- [phone] Encounter Details Date Type Department Care Team (Late st Contact Info) Description 03/05/2017 Orders Only [facility] Specialty Pharmacy [facility] Building [address] [place] [address] [phone] Norman Scales MD PhD [address] [place] [address] [phone] Social History Tobacco Use Types Packs/Day Years [...] Info) Description 02/11/2025 8:00 AM EDT Infusion [facility] Building Infusion Clinic [address] [place] [address] 74875 04/20/2025 9:00 AM EDT Office Visit [facility] Multiple Sclerosis Clinic [address] [place] [address] 47231 Photovoltaic Technician: Chet Villa MD [address] [place] [address] 05411 documented as of this encounter Visit Diagnoses Not on filedocumented in this encounter Additional Health Concerns Infection Onset Date Last Indicated Resolved Time COVID-19 - Suspected infection 02/04/2020 02/04/2020 02/04/2020 8:55 PM EDT documented as of this encounter Care Teams Publishing Director Relationship Specialty Start Date End Date Keyur Hendrix [address] [place] [address] [phone] PCP - General Internal Medicine 11/12/18 documented as of this encounter
--- OUTSIDE RECORDS SUMMARY | 2025-01-15 16:07 | XMS_ITS | Clinical Summary ---
Author Organization [facility] Address [address] [place] [address] Care Team Providers Care Gas Operations Analyst Name Role Phone Unavailable Primary Care Provider Unavailabl e Social History Tobacco Use Types Packs/Day Years Used Date Smoking Tobacco: Never Assessed Comments Unknown Sex and Gender Information Value Date Recorded Sex Assigned at Not on file Legal Sex Female 6:59 PM EST Gender Identity Not on file Sexual Orientation Not on file Plan of Treatment Health Maintenance Due Date Last Done Comments Hepatitis C Virus Screening 1966 HIV Screening 1979 DTaP/Tdap/Td Vaccines (1 - Tdap) 1985 Hepatitis B Vaccines (1 of 3 - 19+ 3-dose series) 06/16 Pneumococcal Vaccines 50+ (1 of 1 - PCV) 2016 Zoster (Shingles) Vaccine (1 of 2) 2016 COVID-19 Vaccine ( - 2023- season) 2024
--- OUTSIDE RECORDS SUMMARY | 2025-01-15 16:07 | XMS_ITS | Encounter Summary ---
Author Organization [facility] Address [address] [place] [address] Care Team Providers Care Minesweeping Officer Name Role Phone Keyur Hendrix Primary Care Provider +1- [phone] Encounter Details Date Type Department Care Team (Late Contact Info) Description 04/13/2022 myChart Message [facility] Neurology Clinic [address] [place] [address] 47454 Heydi Leung MD [address] [place] [address] [phone] vit D supplements Social History Tobacco Use Types Packs/Day Years [...] Info) Description 02/11/2025 8:00 AM EDT Infusion [facility] Infusion Clinic [address] [place] [address] 87[address] 04/20/2025 9:00 AM EDT Office Visit [facility] Multiple Sclerosis Clinic [address] [place] [address] 15866 Measurement Analyst: Chet Villa MD [address] [place] [address] 28316 documented as of this encounter Visit Diagnoses Not on filedocumented in this encounter Care Teams Minesweeping Officer Relationship Specialty Start Date End Date Keyur Hendrix [address] [place] [address] [phone] PCP - General Internal Medicine 11/12/18 documented as of this encounter
--- OUTSIDE RECORDS SUMMARY | 2025-01-15 16:07 | XMS_ITS | Clinical Summary ---
Author Organization [facility] Address [address] [place] [address] Care Team Providers Care Lace Winder Name Role Phone Keyur Hendrix Primary Care Provider +1- [phone] Allergies Active Allergy Reactions Criticality Noted Date [...] t be different from the original. Paula Sevilla had her biopsy done at [facility] general surgery.A copy of the report is [...] vitamin D supplementation. Nonspecific immunological findings 09/11/2011 Encounters Date Type Department Care Team Description 12/04/2024 myChart Message [facility] Multiple Sclerosis Clinic [address] [place] [address] 80917 Inventory Auditor: Coco Rodriguez MD Following up 11/30/2024 Telephone [facility] Multiple Sclerosis Clinic [address] [place] [address] 62690 Inventory Auditor: Surekha Sullivan LPN 11/18/2024 myChart Message [facility] Neurology Clinic [address] [place] [address] [phone] Mychart, Generic Provider MRI schedule from Last 3 Months Family History Medical History Relation Name Comments Other Father Family History of hypertension Other Mother Family history of High cholesterol Relation Name Status Comments Father Mother Social History Tobacco Use Types Packs/Day Years [...] kg (122 lb 0.4 oz) 09/10/2024 8:22 A M EST Height 161 cm (5' 3.39 ) 03/18/2023 10:00 AM EDT Body Mass Index 21.35 03/18/2023 10:00 AM EDT Plan of Treatment Upcoming Encounters Date Type Department Care Team (Late st Contact Info) Description 02/11/2025 8:00 AM EDT Infusion [facility] Building Infusion Clinic [address] [place] [address] 04/20/2025 9:00 AM EDT Office Visit [facility] Multiple Sclerosis Clinic [address] [place] [address] 72047 Inventory Auditor: Chet Villa MD [address] [place] [address] 70059 Health Maintenance Due Date Last Done Comments Cervical Cancer Screening 1966 Colonoscopy 1966 FOBT / Fit Test 1966 HPV and Pap Smear 1966 Pap Smear 1966 Sigmoidoscopy 1966 Hepatitis B Vaccines (1 of 3 - 19+ 3-dose series) 1985 DTaP,Tdap,and Td Vaccines (1 - Tdap) 1988 Mammogram 2006 Pneumococcal Vaccine: 50+ Ye ars (1 of 1 - PCV) 2016 Zoster Vaccines (1 of 2) 2016 COVID-19 Vaccine (4 - 2023-2 5 season) 2024 08/24/2021, 02/03/2021, 01/13/2021 Alcohol/Substance Use Screening 09/16/2024 Depression Screening and Follow-Up 09/16/2024 Social Drivers of Health Isabella ual Screening 09/16/2024 Influenza Vaccine (Season Ended) 2025 Cologuard 02/02/2027 02/03/2024, 05, 11/08/2020 Colon Cancer Screening 02/02/2027 RSV Vaccine (60+ years old a nd patients) (1 - 1-dose 75+ series) 2041 HIV Screening Completed 04/10/2017, 06/16, 03/08/2014, Additional history exists Hepatitis C Screening Completed 04/10/2017 , 11/08/2014, 08/05/2012 Procedures * Due to [place] [employer] law, this organization might not be sharing negative HIV tests. Procedure Name Priority Date/Time Associated Diagnosis Comments HEPATITIS PANEL, ACUTE Routine 04/10/2017 12:22 PM EDT CD4 COUNTS Routine 07/04/2015 2:16 PM EDT from Last 3 Months or Most Recently Relevant to Health Maintenance Results * Due to [place] [employer] law, this organization might not be sharing negative HIV tests. * Hepatitis Panel, Acute (04/10/2017 12:22 PM EDT) Hepatitis A IgM NON-REACTI VE NON-REACT [facility] Hepatitis B Surface Antigen NON-REACTI VE NON-REACT [facility] Hepatitis B Core Antibody NON-REACTI VE NON-REACT [facility] Hepatitis C Antibody NON-REACTI VE NON-REACT [facility] Signal To Cut-Off 0.01 <1.00 [facility] 04/10/2017 12:2 2 PM EDT 04/10/2017 1:14 PM EDT Norman Scales MD PhD LAB BLOOD ORDERABLES Cherelle argueta Result [facility] [address] [facility] 3rd Floor, [place] [address], [place] [phone] from Last 3 Months or Most Recently Relevant to Health Maintenance Insurance [facility] HMO/POS Care Teams Lace Winder Relationship Specialty Start Date End Date Keyur Hendrix [address] [place], [place] [phone] PCP - General Internal Medicine 11/12/18
--- OUTSIDE RECORDS SUMMARY | 2025-01-15 16:07 | XMS_ITS | Encounter Summary ---
Author Organization [facility] Address [address] [place] [address] Care Team Providers Care Wine And Spirits Clerk Name Role Phone Keyur Hendrix Primary Care Provider +1- [phone] Encounter Details Date Type Department Care Team (Late st Contact Info) Description 10/18/2016 Orders Only [facility] Specialty Pharmacy [facility] Building [address] [place] [phone] González Bass MD PhD [address] [place] [address] 12729 Social History Tobacco Use Types Packs/Day Years [...] Info) Description 02/11/2025 8:00 AM EDT Infusion [facility] Building Infusion Clinic [address] [place] [address] 89689 04/20/2025 9:00 AM EDT Office Visit [facility] Multiple Sclerosis Clinic [address] [place] [address] [phone] Bookmaker'S Clerk: Chet Villa MD [address] [place] [address] [phone] documented as of this encounter Visit Diagnoses Not on filedocumented in this encounter Additional Health Concerns Infection Onset Date Last Indicated Resolved Time COVID-19 - Suspected infection 02/04/2020 02/04/2020 02/04/2020 8:55 PM EDT documented as of this encounter Care Teams Wine And Spirits Clerk Relationship Specialty Start Date End Date Keyur Hendrix [address] [place] [address] [phone] PCP - General Internal Medicine 11/12/18 documented as of this encounter
--- OUTSIDE RECORDS SUMMARY | 2025-01-15 16:07 | XMS_ITS | Encounter Summary ---
Author Organization [facility] Address [address] [place] [address] Care Team Providers Care Citizen Participation Specialist Name Role Phone Keyur Hendrix Primary Care Provider +1- [phone] Encounter Details Date Type Department Care Team (Late st Contact Info) Description 05/18/2016 Orders Only [facility] Building [address] [place] [address] [id number] Norman Scales MD PhD [address] [place] [address] [phone] Social History Tobacco Use Types Packs/Day Years [...] Info) Description 02/11/2025 8:00 AM EDT Infusion [facility] [address] [place] [address] [phone] 04/20/2025 9:00 AM EDT Office Visit [facility] [address] [place] [address] [phone] Casting Carrier: Chet Villa MD [address] [place] [address]196 documented as of this encounter Visit Diagnoses Not on filedocumented in this encounter Additional Health Concerns Infection Onset Date Last Indicated Resolved Time COVID-19 - Suspected infection 02/04/2020 02/04/2020 02/04/2020 8:55 PM EDT documented as of this encounter Care Teams Citizen Participation Specialist Relationship Specialty Start Date End Date Keyur Hendrix [address] [place] [address] [phone] PCP - General Internal Medicine 11/12/18 documented as of this encounter
== END 2025-01-15 16:05 | disposition home or self-care (01) ==
LOC: HO.MAMMO 16:04
PROVIDERS: PCP Internal Medicine; Visit Provider Internal Medicine
DX: Z12.31 Encounter for screening mammogram for malignant neoplasm of breast (principal)
CPT/HCPCS: 77063; 77067

== ENCOUNTER 2025-01-28 15:48 | Outpatient (AMB) | payer BC, SELFPAY ==
[2025-01-28 16:04] VITALS: BP 100/50; PULSE 70; TEMP 36; O2SAT 99; BMI 19.7
--- NOTE | 2025-01-28 16:04 | A.OFFPC_ITS ---
Vital Signs 01/28/25 16:04 Height 5 ft 4 in Weight 114 lb 8 oz BMI 19.7 BP 100/50 L Blood Pressure Location Lt brachial Position Sitting Pulse 70 Pulse Source Pulse Oximeter Temp 96.8 F Temp Source Temporal Artery Scan Pulse Oximetry (%) 99 Oxygen Delivery Method Room Air Intake Visit Reasons: Annual Exam Hog Slaughterer Required: No Accompanied by: Spouse Allergies metoclopramide [From Reglan] Allergy (Mild, Verified 01/28/25 16:14) RASH pantoprazole [From Protonix] Allergy (Mild, Verified 01/28/25 16:14) RASH pollen extracts [POLLEN] Allergy (Mild, Verified 01/28/25 16:14) SNEEZING,ITCHING,WATERY EYES adhesive tape Allergy (Unknown, Verified 01/28/25 16:14) RASH amoxicillin [Augmentin] Allergy (Unknown, Verified 01/28/25 16:14) vomiting bloody foam cephalexin [From KEFLEX] Allergy (Unknown, Verified 01/28/25 16:14) RASH, ITCHY clavulanic acid [Augmentin] Allergy (Unknown, Verified 01/28/25 16:14) vomiting bloody foam latex [LATEX] Allergy (Unknown, Verified 01/28/25 16:14) RASH shellfish derived Allergy (Unknown, Verified 01/28/25 16:14) RASH/NAUSEA & VOMITING Sulfa (Sulfonamide Antibiotics) Allergy (Unknown, Verified 01/28/25 16:14) rash sulfamethoxazole [From Bactrim] Allergy (Unknown, Verified 01/28/25 16:14) RASH trimethoprim [From Bactrim] Allergy (Unknown, Verified 01/28/25 16:14) RASH ciprofloxacin [From Cipro] Adverse Reaction (Unknown, Verified 01/28/25 16:14) SWEATING, LIGHT HEADEDNESS, NAUSEA, DOUBLE VISION Latex Allergy (Unknown, Uncoded 01/28/25 16:14) hives Medication List - Last Reconciled 01/28/25 by Simran Pina PA-C albuterol sulfate 90 mcg/actuation (ProAir HFA) 2 puffs inhalation Q6H PRN ocrelizumab mg IV Tobacco use date assessed: 01/28/25 Dental Screening Dental Screen Date: 01/28/25 Did you have a dental visit in the last 12 months?: Yes Did you have a dental problem in the last 6 months where you did not have access to dental care?: No Was dental information given to patient?: Patient has dentist HPI Annual Exam HPI Details The patient is a 59-year-old female presenting for her annual physical examination and a medication refill for her albuterol inhaler. She has a chronic health history including Multiple Sclerosis managed with Ocrevus infusions every five months, responding well with no new lesions since treatment initiation. The infusions are notable for prolonged administrations due to adverse reactions. Historically, the patient reports extensive care challenges concerning her reproductive and post-operative history. She reports that she was told in the past from a health sciences department chair that she did not need additional cervical cancer screening or Pap smears any longer and this was when she was in her 50s. 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 Therefore she would like a referral for cervical cancer screening/Pap smears to a different location that is out of [place]. The patient also reports bursitis in her right foot, which was challenging to diagnose, eventually confirmed by another provider and patient currently denies any pain from the ankle bursitis at this time. Social History - Detailed accounts of family support [facility] medical emergencies. [facility] Medical History (Updated 01/28/25 @ 16:56 by Simran Pina PA-C) Hyperlipidemia Elevated alkaline phosphatase level Leukopenia Bursitis of right ankle Cervical cancer screening Multiple sclerosis Surgical History History of biopsy History of D&C H/O right breast biopsy History of appendectomy History of section History of wisdom tooth extraction Family History Father Colon cancer Past heart attack Hypertension Mother Hyperlipidemia Brother No problems noted. Sister No problems noted. Social History Housing: House Alcohol intake: never Patient Tobacco Use Status: Never used Tobacco e-Cigarette/Vaping Use: Never Used Second Hand Smoke Exposure: No service: No Current occupational status: disabled Cognitive needs: Yes (cane) Hearing needs: No Vision needs: No Questionnaire PHQ-9 Over the last 2 weeks, how often have you been bothered by any of the following problems? 1. Little interest or pleasure in doing things: not at all 2. Feeling down, depressed, or hopeless: not at all 3. Trouble falling or staying asleep, or sleeping too much: not at all 4. Feeling tired or having little energy: not at all 5. Poor appetite or overeating: not at all 6. Feeling bad about yourself - or that you are a failure or have let yourself or your family down: not at all 7. Trouble concentrating on things, such as reading the newspaper or watching television: not at all 8. Moving or speaking so slowly that other people could have noticed. Or the opposite - being so fidgety or restless that you have been moving around a lot more than usual: not at all 9. Thoughts that you would be better off or of hurting yourself in some way: not at all Total score: 0 Depression Screening Interpretation: Negative Depression Screening Done: Yes 10408 - PHQ-9 Billing: Yes Source: Developed by Drs. Ludin James, Miri Carrion, Mina Paul and colleagues, with an educational nicolette from [employer]. Thrive Questionnaire Date Thrive assessed: 01/28/25 I am a: Patient What is your living situation today?: I have a steady place to live Within the past 12 months, did the food you bought not last and you didn't have the money to get more?: Never true Within the past 12 months, did you worry whether your food would run out before you got money to buy more?: Never true Do you have trouble paying for medicines?: No Do you have trouble getting transportation to medical appointments?: No Do you have trouble paying your heating and electricity bill?: No Do you have trouble taking care of your child, family member or friend?: No Do you have trouble with day-to-day activities such as bathing, preparing meals, shopping, managing finances, etc.?: No Are you currently unemployed and looking for a job?: No Are you interested in more education?: No Please select the resources that you would like help with: None Currently or been in a relationship where the following occur: No concerns reported THRIVE Score: 0 AUDIT C Alcohol Use Questionnaire (AUDIT-C) 1. How often do you have a drink containing alcohol?: Never 3. How often do you have six or more drinks on one occasion?: Never Total Score: 0 Score Reviewed/Action Taken: No CHRISTIANO-7 AMB Questionnaire CHRISTIANO-7 Date CHRISTIANO - 7 assessed: 01/28/25 Feeling nervous, anxious, or on edge: 0 = Not at all Not being able to stop or control worryin = Not at all Worrying too much about different things: 0 = Not at all Trouble relaxin = Not at all Being so restless that it is hard to sit still: 0 = Not at all Becoming easily annoyed or irritable: 0 = Not at all Feeling afraid as if something awful might happen: 0 = Not at all Total CHRISTIANO-7 score (0-4 normal; 5-9 mild; 10-14 moderate; 15-21 severe): 0 Source: Developed by Drs. Ludin James, Miri Carrion, Mina Paul and colleagues, with an educational nicolette from [employer]. CHRISTIANO-7 Assessment Billing CHRISTIANO-7 Assessment Tool: CHRISTIANO-7 Assessment 79781 Review of Systems Const Details: - General: Reports fatigue and downturn before MS infusions. - Respiratory: Denies recent dyspnea. - Musculoskeletal: Reports bursitis in the right foot. - Hematological: Chronic low white blood cell count reported. - Neurological: Reports having MS, occasional exacerbations. Physical exam (Primary Care) Vital Signs: Last Vital Signs Temp 96.8 F 01/28/25 16:04 Pulse 70 01/28/25 16:04 BP 100/50 L 01/28/25 16:04 Pulse Ox 99 01/28/25 16:04 Oxygen Delivery Method Room Air 01/28/25 16:04 Care Plan Goal for BP management: <130/90 at Goal BMI result Body Mass Index 19.7 normal bmi Tobacco/Smoking Status: Tobacco use Status Tobacco use date assessed 01/28/25 01/28/25 16:10 Patient Tobacco Use Status Never used Tobacco 01/28/25 16:06 e-Cigarette/Vaping Use Never Used 01/28/25 16:06 PHQ-9: PHQ-9 Score PHQ-9: Total score 0 01/28/25 16:10 Depression Screening Interpretation: Negative Thrive Assessment: Date of Thrive Assessment Date Thrive assessed 01/28/25 01/28/25 16:10 Currently or been in a relationship where the following occur: No concerns reported Const Other: Appearance: Alert. Oriented X3. No acute distress. Head: Normal external exam. Normocephalic. Atraumatic. Eyes: Pupils are equal, round, and reactive to light. Extraocular movements intact. Conjunctiva and sclera normal. Eyelids normal. Ears: External auditory canal normal. Tympanic membranes normal. Throat: Pharynx normal. Uvula midline. Moist mucous membranes. Neck: Normal inspection. Neck supple. Full range of motion. No adenopathy. Thyroid Normal. No meningeal signs. No neck mass noted. Cardiovascular: Normal heart rate and rhythm. Heart sound normal. No murmurs noted. Pulses normal throughout. Respiratory: No respiratory distress. Painless inspiration. Breath sounds normal. No wheezes/rales/rhonchi noted. Chest nontender. No accessory muscle usage noted or decreased air movement noted. Abdomen: Soft and nontender. Bowel sounds normal in all 4 quadrants. No distention noted. No organomegaly noted. No visible injury noted. Back: No costovertebral angle tenderness. Full range of motion noted. Skin: Skin warm and dry. Normal skin color. Normal skin turgor. No rashes/lesions/lacerations noted. Extremities: No lower extremity edema. Extremities exhibit normal range of motion. Extremities nontender. Bursitis noted in the right foot. Neuro: Oriented X 3. No obvious motor or sensory deficit noted at this time. Patient at baseline. Reflexes normal. Walking with cane without any difficulties. Results Reviewed Results Reviewed: - Labs: Chronic low white blood cell count noted. Elevation in alkaline phosphatase (126) and LDL cholesterol (138) levels detailed. Normal thyroid function (1.57) and glucose levels observed. - Patient reported normal urine and imaging results (not dated in conversation). Coding Level of Care Code Complex EM visit Add On G2211 Diagnoses Annual physical exam Z00.00 Multiple sclerosis G35 Cervical cancer screening Z12.4 Bursitis of right ankle M77.51 Leukopenia D72.819 Elevated alkaline phosphatase level R74.8 Hyperlipidemia E78.5 Additional Codes CHRISTIANO-7 Assessment Billing - CHRISTIANO-7 Assessment Tool: CHRISTIANO-7 Assessment 50567 ([id number]) PHQ-9 - 04670 - PHQ-9 Billing: Yes ([id number]) Assessment & Plan Assessment & Plan (1) Annual physical exam: Code(s): Z00.00 - Encounter for general adult medical examination without abnormal findings Category: Medical (2) Multiple sclerosis: Code(s): G35 - Multiple sclerosis Category: Medical Plan: Maintain Ocrevus infusions every five months, adjusting for adverse reactions with Pepcid use. Condition is chronic and stable will continue to monitor. (3) Cervical cancer screening: Code(s): Z12.4 - Encounter for screening for malignant neoplasm of cervix Category: Medical Plan: Referred to MERCHANDISE DIRECTOR at [facility] for Pap smear evaluation. (4) Bursitis of right ankle: Code(s): M77.51 - Other enthesopathy of right foot and ankle Category: Medical Plan: Intermittent monitoring, currently no medication. Condition is chronic and stable continue to monitor. (5) Leukopenia: Code(s): D72.819 - Decreased white blood cell count, unspecified Category: Medical Plan: Regular CBC follow-ups, no treatment adjustments needed now. Condition is chronic and stable continue to monitor. (6) Elevated alkaline phosphatase level: Code(s): R74.8 - Abnormal levels of other serum enzymes Category: Medical Plan: Ongoing monitoring with routine lab work. Condition is chronic and stable will continue to monitor. (7) Hyperlipidemia: Code(s): E78.5 - Hyperlipidemia, unspecified Category: Medical Plan: Consideration of lifestyle changes; potential statin introduction if future results necessitate. Condition is chronic and stable will continue to monitor. Plan Plan Patient was informed and verbally consented to the use of an ambient scribe for clinic note documentation during this visit. 1. Multiple Sclerosis Maintain Ocrevus infusions every five months, adjusting for adverse reactions with Pepcid use. 2. Bursitis Of The Right Foot Intermittent monitoring, currently no medication. 3. Chronic Low White Blood Cell Count Regular CBC follow-ups, no treatment adjustments needed now. 4. Rh-Negative Blood Type With History Of Miscarriages Referred to MERCHANDISE DIRECTOR at [facility] for Pap smear evaluation. 5. Elevated Alkaline Phosphatase Levels Ongoing monitoring with routine lab work. 6. Hyperlipidemia Consideration of lifestyle changes; potential statin introduction if future results necessitate. We discussed the management strategies for her Multiple Sclerosis, emphasizing the importance of maintaining her Ocrevus infusion schedule at the adjusted interval due to rapid symptom exacerbation when off-schedule. I reiterated the necessity of careful premedication during these infusions due to prior adverse reactions. The patient was encouraged to maintain monitoring for any significant changes in her symptoms. The chronic low white blood cell count will need surveillance and periodic lab work to ensure no complications arise, especially given her immunocompromised status. Recommendations for monitoring her rh- negative status were provided, along with a referral for a gynecological evaluation for continued reproductive health monitoring. Considerations were made for her elevated alkaline phosphatase and hyperlipidemia, where lifestyle adjustments must be prioritized. She agrees with the current management plan, understanding the scope of follow-up care and its importance. Orders: Orders Magnesium Today Z00.00 - Encounter for general adult medical examination without abnormal findings Lipid Panel Today Z00.00 - Encounter for general adult medical examination without abnormal findings Vitamin B12 and Folate Today Z00.00 - Encounter for general adult medical examination without abnormal findings Hemoglobin A1c Today Z00.00 - Encounter for general adult medical examination without abnormal findings Complete Blood Count Auto Diff Today Z00.00 - Encounter for general adult medical examination without abnormal findings Comprehensive Alum [place]. Panel Fast Today Z00.00 - Encounter for general adult medical examination without abnormal findings Liver Panel Today Z00.00 - Encounter for general adult medical examination with out abnormal findings Vitamin D 25-OH Total Today Z00.00 - Encounter for general adult medical examination without abnormal findings TSH reflex Free T4 Today Z00.00 - Encounter for general adult medical examination without abnormal findings Referrals LINK WIRE FABRIC MACHINE TENDER Referral Z12.4 - Encounter for screening for malignant neoplasm of cervix Medications: Changed From albuterol sulfate 90 mcg/actuation (ProAir HFA) 2 puffs inhalation Q6H PRN 8.5 grams 1RF bronchospasm To albuterol sulfate 90 mcg/actuation 2 puffs inhalation Q6H PRN 8.5 grams 1RF bronchospasm Patient Instructions: - Continue taking Pepcid as premedication for Ocrevus infusions. - Monitor for any new symptoms or adverse reactions. - Fast before blood work for accurate results as discussed. - Consider dietary changes to manage cholesterol levels. - Follow up with dot compliance specialist referral as discussed. - Contact for any worsening or new symptoms.
--- OUTSIDE RECORDS SUMMARY | 2025-01-28 16:05 | XMS_ITS | Encounter Summary ---
Author Organization [facility] Address [address] [place] [address] Care Team Providers Care Account Manager Forest Service Name Role Phone Keyur Hednrix Primary Care Provider +1- [phone] Encounter Details Date Type Department Care Team (Late st Contact Info) Description 10/18/2016 Orders Only [facility] Building [address] [place] [address] 11696 González Bass MD PhD [address] [place] [address] [phone] Social History Tobacco Use Types Packs/Day Years [...] Info) Description 02/11/2025 8:00 AM EDT Infusion [facility] Building Infusion Clinic [address] [place] [address] [phone] 04/20/2025 9:00 AM EDT Office Visit [facility] [address] [place] [address] [phone] Magician Helper: Chet Villa MD [address] [place] [address] [phone] documented as of this encounter Visit Diagnoses Not on filedocumented in this encounter Additional Health Concerns Infection Onset Date Last Indicated Resolved Time COVID-19 - Suspected infection 02/04/2020 02/04/2020 02/04/2020 8:55 PM EDT documented as of this encounter Care Teams Account Manager Forest Service Relationship Specialty Start Date End Date Keyur Hendrix [address] [place] [address] [phone] PCP - General Internal Medicine 11/12/18 documented as of this encounter
--- OUTSIDE RECORDS SUMMARY | 2025-01-28 16:05 | XMS_ITS | Encounter Summary ---
Author Organization [facility] Address [address] [place] [address] Care Team Providers Care Sales Recruiting Coordinator Name Role Phone Keyur Hendrix Primary Care Provider +1- [phone] Encounter Details Date Type Department Care Team (Late st Contact Info) Description 05/18/2016 Orders Only [facility] Building [address] [place] [address] 09453 Norman Scales MD PhD [address] [place] [address] 10742 Social History Tobacco Use Types Packs/Day Years [...] Infusion [facility] Building Infusion Clinic [address] [place] [address] 23724 04/20/2025 9:00 AM EDT Office Visit [facility] [address] [place] [address] 24105 Utility Tender Carding: Chet Villa MD [address] [place] [address] [phone] documented as of this encounter Visit Diagnoses Not on filedocumented in this encounter Additional Health Concerns Infection Onset Date Last Indicated Resolved Time COVID-19 - Suspected infection 02/04/2020 02/04/2020 02/04/2020 8:55 PM EDT documented as of this encounter Care Teams Sales Recruiting Coordinator Relationship Specialty Start Date End Date Keyur Hendrix [address] [place] [address] [phone] PCP - General Internal Medicine 11/12/18 documented as of this encounter
--- OUTSIDE RECORDS SUMMARY | 2025-01-28 16:05 | XMS_ITS | Encounter Summary ---
Author Organization [facility] Address [address] [place] [address] Care Team Providers Care Line Builder Name Role Phone Keyur Hendrix Primary Care Provider +1- [phone] Encounter Details Date Type Department Care Team (Late st Contact Info) Description 07/18/2021 myChart Message [facility] PB Revenue Cycle Management [address] [place] [address] Mychart, Generic Provider [address] [place] [address] payment plan Social History Tobacco [...] Info) Description 02/11/2025 8:00 AM EDT Infusion [facility] Building Infusion Clinic [address] [place] [address] 04/20/2025 9:00 AM EDT Office Visit [facility] S[facility] [address] [place] [address] Molding Machine Operator: Chet Villa MD [address] [place], [place] [phone] documented as of this encounter Visit Diagnoses Not on filedocumented in this encounter Care Teams Line Builder Relationship Specialty Start Date End Date Keyur Hendrix [address] [place] [address] [phone] PCP - General Internal Medicine 11/12/18 documented as of this encounter
--- OUTSIDE RECORDS SUMMARY | 2025-01-28 16:05 | XMS_ITS | Encounter Summary ---
Author Organization [facility] Address [address] [place] [address] Care Team Providers Care Coal Wheeler Name Role Phone Keyur Hendrix Primary Care Provider +1- [phone] Encounter Details Date Type Department Care Team (Late st Contact Info) Description 10/19/2016 Orders Only [facility] Building [address] [place] [phone] González Bass MD PhD [address] [place] [address] [phone] Social History Tobacco Use Types Packs/Day Years [...] Info) Description 02/11/2025 8:00 AM EDT Infusion [facility] Building Infusion Clinic [address] [place] [address] [phone] 04/20/2025 9:00 AM EDT Office Visit [facility] Multiple Sclerosis Clinic [address] [place] [address] [phone] Rotary Driller Prospecting: Chet Villa MD [address] [place] [address] [phone] documented as of this encounter Visit Diagnoses Not on filedocumented in this encounter Additional Health Concerns Infection Onset Date Last Indicated Resolved Time COVID-19 - Suspected infection 02/04/2020 02/04/2020 02/04/2020 8:55 PM EDT documented as of this encounter Care Teams Coal Wheeler Relationship Specialty Start Date End Date Keyur Hendrix [address] [place] [address] [phone] PCP - General Internal Medicine 11/12/18 documented as of this encounter
--- OUTSIDE RECORDS SUMMARY | 2025-01-28 16:05 | XMS_ITS | Encounter Summary ---
Author Organization [facility] Address [address] [place] [address] Care Team Providers Care Plastics Plater Name Role Phone Keyur [place]rix Primary Care Provider +1- [phone] Encounter Details Date Type Department Care Team (Late st Contact Info) Description 01/27/2025 Telephone [facility] [address] [place] [address] Telecom Billing Analyst: Jayla Coleman LPN [place], [place] Social History Tobacco Use Types Packs/Day Years Used Date Smoking Tobacco: Never Smokeless Tobacco: Never Comments:: Comments Unknown Sex and Gender Information Value Date Recorded Sex Assigned at Female 01/30/2021 12:07 PM EDT Legal Sex Female 12:40 PM EDT Gender Identity Female 01/30/2021 12:07 PM EDT Sexual Orientation Straight 01/30/2021 12 :07 PM EDT documented as of this encounter Miscellaneous Notes * Telephone Encounter - Jayla Meneses LPN - 01/27/2025 2:45 PM EDT She needs a script for prednisone as she is having her ocrevus soon documented in this encounter Plan of Treatment Upcoming Encounters Date Type Department Care Team (Late st Contact Info) Description 02/11/2025 8:00 AM EDT Infusion [facility]fusion [facility] [address] [place] [address] [phone] 04/20/2025 9:00 AM EDT Office Visit [facility] [address] [place] [address] Telecom Billing Analyst: Chet Villa MD [address] [place] [phone] documented as of this encounter Visit Diagnoses Not on filedocumented in this encounter Care Teams Plastics Plater Relationship Specialty Start Date End Date Keyur [place]rix [address] [place] [phone] PCP - General Internal Medicine 11/12/18 documented as of this encounter
--- OUTSIDE RECORDS SUMMARY | 2025-01-28 16:05 | XMS_ITS | Clinical Summary ---
Author Organization [facility] Address [address] [place] [address] Care Team Providers Care Rework Operator Name Role Phone Keyur [place]rix Primary Care Provider +1- [phone] Allergies Active Allergy Reactions Criticality Noted Date [...] mouth the morning of infusion 2 tablet 5 Active Active Problems Patient Care Coordination No te Formatting of this note migh t be different from the original. Paula Sevilla had her biopsy done at [facility] general surgery.A copy of the report is [...] Encounters Date Type Department Care Team Description 01/27/2025 Telephone [facility] [address] [place] [address] 45881 Manufacturing Weaver: Jayla Coleman LPN 01/27/2025 Refill [facility] [address] [place] [address] 22487 Manufacturing Weaver: Jayla Coleman LPN Multiple sclerosis 12/04/2024 myChart Message [facility] [address] [place] [address] 79682 Manufacturing Weaver: Coco Rodriguez MD Following up 11/30/2024 Telephone [facility] [address] [place] [address] 31666 Manufacturing Weaver: Surekha Sullivan LPN 11/18/2024 myChart Message [facility]rology [facility] [address] [place] [address] 41165 Mychart, Generic Provider MRI schedule from Last [...] Info) Description 02/11/2025 8:00 AM EDT Infusion [facility] Infusion [facility] [address] [place] [address] 22[address] 04/20/2025 9:00 AM EDT Office Visit [facility] [address] [place] [address] 49519 Manufacturing Weaver: Chet Villa MD [address] [place] [address] 21316 Health Maintenance Due Date Last Done Comments [...] Vaccine (Season Ended) 2025 Cologuard 02/02/2027 02/03/2024, 01/15, 11/08/2020 Colon Cancer Screening 02/02/2027 RSV Vaccine (60+ years old a nd patients) (1 - 1-dose 75+ series) 2041 HIV Screening Completed 04/10/2017, 06/16, 03/08/2014, Additional history exists Hepatitis C Screening Completed 04/10/2017 , 11/08/2014, 08/05/2012 Procedures * Due to [place] [employer] law, this organization might not be sharing negative HIV tests. Procedure Name Priority Date/Time Associated Diagnosis Comments HEPATITIS PANEL, ACUTE Routine 04/10/2017 12:22 PM EDT CD4 COUNTS Routine 07/04/2015 2:16 PM EDT from Last 3 Months or Most Recently Relevant to Health Maintenance Results * Due to [place] [employer] law, this organization might not be sharing negative HIV tests. * Hepatitis Panel, Acute (04/10/2017 12:22 PM EDT) Hepatitis A IgM NON-REACTI VE NON-REACT [facility] Hepatitis B Surface Antigen NON-REACTI VE NON-REACT [facility] Hepatitis B Core Antibody NON-REACTI VE NON-REACT [facility] Hepatitis C Antibody NON-REACTI VE NON-REACT [facility] Signal To Cut-Off 0.01 <1.00 [facility] 04/10/2017 12:2 2 PM EDT 04/10/2017 1:14 PM EDT us Norman Scales MD PhD LAB BLOOD ORDERABLES Cherelle argueta Result [facility] [address] [facility] 3rd Floor, [place] [address], [place] [phone] from Last 3 Months or Most Recently Relevant to Health Maintenance Insurance [facility] HMO/POS Care Teams Rework Operator Relationship Specialty Start Date End Date Keyur [place]rix [address] [place] [address] PCP - General Internal Medicine 11/12/18
--- OUTSIDE RECORDS SUMMARY | 2025-01-28 16:05 | XMS_ITS | Referral Summary ---
Author Organization [facility] Address [address] [phone] Care Team Providers Care Independent Agent Music Education Name Role Phone Keyur [place]rix Primary Care Provider +1- [phone] Encounters Date Type Department Care Team Description 01/27/2025 Telephone [facility] [address] [place] [address] 45403 Revenue Cycle Administrator: Jayla Coleman LPN 01/27/2025 Refill [facility] [address] [place] [address] 13132 Revenue Cycle Administrator: Jayla Coleman LPN Multiple sclerosis 12/04/2024 myChart Message [facility] [address] [place] [address] 89616 Revenue Cycle Administrator: Coco Rodriguez MD Following up 11/30/2024 Telephone [facility] [address] [place] [address] 36175 Revenue Cycle Administrator: Surekha Sullivan LPN 11/18/2024 myChart Message [facility] Building Neurology Clinic [address] [place] [address] [phone] Mychart, Generic Provider MRI schedule from Last [...] Paula Milesdemetrio had her biopsy done at [facility] general surgery.A copy of the report [...] Info) Description 02/11/2025 8:00 AM EDT Infusion [facility] [address] [place] [address] 04/20/2025 9:00 AM EDT Office Visit [facility] [address] [place] [address] 20088 Revenue Cycle Administrator: Chet Villa MD [address] [place] [address] [phone] Procedures * Due to [place] state law, this organization might not be sharing negative HIV tests. Procedure Name Priority Date/Time Associated Diagnosis Comments HEPATITIS PANEL, ACUTE Routine 04/10/2017 12:22 PM EDT CD4 COUNTS Routine 07/04/2015 2:16 PM EDT from Last 3 Months or Most Recently Relevant to Health Maintenance Results * Due to [place] state law, this organization might not be sharing negative HIV tests. * Hepatitis Panel, Acute (04/10/2017 12:22 PM EDT) Hepatitis A IgM NON-REACTI VE [facility] Hepatitis B Surface Antigen NON-REACTI VE NON-REACT [facility] Hepatitis B Core Antibody NON-REACTI VE NON-REACT [facility] Hepatitis C Antibody NON-REACTI VE NON-REACT [facility] Signal To Cut-Off 0.01 <1.00 [facility] 04/10/2017 12:2 2 PM EDT 04/10/2017 1:14 PM EDT us Norman Scales MD PhD LAB BLOOD ORDERABLES Cherelle argueta Result [facility] [address] [facility] 3rd Floor, [place] [address], [place] [phone] from Last 3 Months or Most Recently Relevant to Health Maintenance Insurance [facility] HMO/POS Care Teams Independent Agent Music Education Relationship Specialty Start Date End Date Keyur [place]rix [address] [place] [address] PCP - General Internal Medicine 11/12/18
--- OUTSIDE RECORDS SUMMARY | 2025-01-28 16:05 | XMS_ITS | Encounter Summary ---
Author Organization [facility] Address [address] [place] [address] Care Team Providers Care Electronic Instrument Trades Worker Name Role Phone Unavailable Primary Care Provider Unavailabl e Encounter Details Date Type Department Care Team (Late st Contact Info) Description 05/28/2023 Scanned Document [facility] GENERAL SURG SCAN General Surgery, Scan Social [...]
--- OUTSIDE RECORDS SUMMARY | 2025-01-28 16:05 | XMS_ITS | Encounter Summary ---
Author Organization [facility] Address [address] [place] [address] Care Team Providers Care Plant Attendant Name Role Phone Keyur [place]rix Primary Care Provider +1- [phone] Encounter Details Date Type Department Care Team (Late st Contact Info) Description 10/05/2021 Orders Only [facility] [address] [place] [address] Mor Hardin [facility] Social History Tobacco Use Types Packs/Day Years [...] Info) Description 02/11/2025 8:00 AM EDT Infusion [facility] Infusion Clinic [address] [place] [address] 79123 04/20/2025 9:00 AM EDT Office Visit [facility] [address] [place] [address] 78346 Economic Development Coordinator: Chet Villa MD [address], [place] [phone] documented as of this encounter Visit Diagnoses Not on filedocumented in this encounter Care Teams Plant Attendant Relationship Specialty Start Date End Date Keyur Hendrix [address] [place] [address] [phone] PCP - General Internal Medicine 11/12/18 documented as of this encounter
--- OUTSIDE RECORDS SUMMARY | 2025-01-28 16:05 | XMS_ITS | Encounter Summary ---
Author Organization [facility] Address [address] [place] [address] Care Team Providers Care Stenotype Operator Name Role Phone Keyur Hendrix Primary Care Provider +1- [phone] Encounter Details Date Type Department Care Team (Late Contact Info) Description 04/13/2022 myChart Message [facility] Neurology Clinic [address] [place] [address] 56575 Heydi Leung MD [address] [place] [address] 92622 vit D supplements Social History Tobacco Use [...] Info) Description 02/11/2025 8:00 AM EDT Infusion [facility] Infusion Clinic [address] [place] [address] 04/20/2025 9:00 AM EDT Office Visit [facility] Multiple Sclerosis [facility] [address] [place] [address] 72977 Video Control Engineer: Chet Villa MD [address] [place] [address] 17088 documented as of this encounter Visit Diagnoses Not on filedocumented in this encounter Care Teams Stenotype Operator Relationship Specialty Start Date End Date Keyur [place]rix [address] [place] [address] 10393 PCP - General Internal Medicine 11/12/18 documented as of this encounter
--- OUTSIDE RECORDS SUMMARY | 2025-01-28 16:05 | XMS_ITS | Encounter Summary ---
Author Organization [facility] Address [address] [place] [address] Care Team Providers Care Senior Sales Consultant Name Role Phone Unavailable Primary Care Provider Unavailabl e Encounter Details Date Type Department Care Team (Late st Contact Info) Description 02/19/2019 Scanned Document [address] [address] Keyur Hendrix MD Social History [...]
--- OUTSIDE RECORDS SUMMARY | 2025-01-28 16:05 | XMS_ITS | Encounter Summary ---
Author Organization [facility] Address [address] [place] [address] Care Team Providers Care Hospice Registered Nurse Name Role Phone Keyur Hendrix Primary Care Provider +1- [phone] Encounter Details Date Type Department Care Team (Late st Contact Info) Description 03/05/2017 Orders Only [facility] Building [address] [place] [address] 68327 Norman Scales MD PhD [address] [place] [address] [phone] Social History Tobacco Use Types Packs/Day Years [...] Info) Description 02/11/2025 8:00 AM EDT Infusion [facility] Infusion Clinic [address] [place] [address] 66649 04/20/2025 9:00 AM EDT Office Visit [facility] Multiple Sclerosis Clinic [address] [place] [address] 85203 Retail Coverage Merchandiser Lead: Chet Villa MD [address] [place] [address] 12961 documented as of this encounter Visit Diagnoses Not on filedocumented in this encounter Additional Health Concerns Infection Onset Date Last Indicated Resolved Time COVID-19 - Suspected infection 02/04/2020 02/04/2020 02/04/2020 8:55 PM EDT documented as of this encounter Care Teams Hospice Registered Nurse Relationship Specialty Start Date End Date Keyur [place]rix [address] [place] [address] 13536 PCP - General Internal Medicine 11/12/18 documented as of this encounter
--- OUTSIDE RECORDS SUMMARY | 2025-01-28 16:05 | XMS_ITS | Clinical Summary ---
Author Organization [facility] Address [address] [place] [address] Care Team Providers Care Casino Accountant Name Role Phone Unavailable Primary Care Provider [...]
--- OUTSIDE RECORDS SUMMARY | 2025-01-28 16:05 | XMS_ITS | Encounter Summary ---
Author Organization [facility] Address [address] [place] [address] Care Team Providers Care Spinner Frame Name Role Phone Keyur [place]rix Primary Care Provider +1- [phone] Reason for Visit * Reason Onset Date Comments Med Refill 01/27/2025 Encounter Details Date Type Department Care Team (Late st Contact Info) Description 01/27/2025 Refill [facility] S[facility] [address] [place] [address] 18769 Chemical Librarian: Jayla Coleman LPN [place] Multiple sclerosis Social History Tobacco Use Types Packs/Day Years [...] Info) Description 02/11/2025 8:00 AM EDT Infusion [facility] Building Infusion Clinic [address] [place] [address] [phone] 04/20/2025 9:00 AM EDT Office Visit [facility] S[facility] [address] [place] [address] [phone] Chemical Librarian: Ceht Villa MD [address] [place] [address] 93883 documented as of this encounter Visit Diagnoses Diagnosis Multiple sclerosis documented in this encounter Care Teams Spinner Frame Relationship Specialty Start Date End Date Keyur Hendrix [address] [place] [address] 72769 PCP - General Internal Medicine 11/12/18 documented as of this encounter
== END 2025-01-28 16:39 | disposition home or self-care (01) ==
LOC: HO.HMCH 15:49
PROVIDERS: PCP Internal Medicine; Visit Provider Physician Assistant Medical
DX: Z00.00 Encounter for general adult medical examination without abnormal findings (principal); G35 Multiple sclerosis; Z12.4 Encounter for screening for malignant neoplasm of cervix; M77.51 Other enthesopathy of right foot and ankle; D72.819 Decreased white blood cell count, unspecified; R74.8 Abnormal levels of other serum enzymes; E78.5 Hyperlipidemia, unspecified

== ENCOUNTER → 2025-01-28 15:48 | Outpatient (BNVA) | payer BC, SELFPAY | PROVIDERS: PCP Internal Medicine; Visit Provider Physician Assistant Medical | DX: Z00.00 Encounter for general adult medical examination without abnormal findings (principal); G35 Multiple sclerosis; M77.51 Other enthesopathy of right foot and ankle; D72.819 Decreased white blood cell count, unspecified; R74.8 Abnormal levels of other serum enzymes; E78.5 Hyperlipidemia, unspecified | CPT/HCPCS: 96127 ==

== ENCOUNTER 2025-02-02 08:20 | Outpatient (REF) | payer BC, SELFPAY ==
--- OUTSIDE RECORDS SUMMARY | 2025-02-02 08:26 | XMS_ITS | Encounter Summary ---
Author Organization [facility] Address [address] [place] [address] Care Team Providers Care Still Tender Name Role Phone Unavailable Primary Care Provider Unavailabl e Encounter Details Date Type Department Care Team (Late st Contact Info) Description 02/19/2019 Scanned Document [address] [address] Keyur [place]rix MD Social History [...]
--- OUTSIDE RECORDS SUMMARY | 2025-02-02 08:26 | XMS_ITS | Encounter Summary ---
Author Organization [facility] Address [address] [place] [address] Care Team Providers Care Manager It Training Name Role Phone Keyur [place]rix Primary Care Provider +1- [phone] Encounter Details Date Type Department Care Team (Late st Contact Info) Description 07/18/2021 myChart Message [facility] Revenue Cycle Management [address] [place] [address] Mychart, Generic Provider [address] [place] [address] payment plan Social History Tobacco [...] Info) Description 02/11/2025 8:00 AM EDT Infusion [facility] Building Infusion Clinic [address] [place] [address] 04/20/2025 9:00 AM EDT Office Visit [facility] S[facility] [address] [place] [address] Rug Touch Up Painter: Chet Villa MD [address] [place], [place] [phone] documented as of this encounter Visit Diagnoses Not on filedocumented in this encounter Care Teams Manager It Training Relationship Specialty Start Date End Date Keyur Hendrix [address] [place] [address] [phone] PCP - General Internal Medicine 11/12/18 documented as of this encounter
--- OUTSIDE RECORDS SUMMARY | 2025-02-02 08:26 | XMS_ITS | Encounter Summary ---
Author Organization [facility] Address [address] [place] [address] Care Team Providers Care Bi Solutions Architect Name Role Phone Unavailable Primary Care Provider Unavailabl e Encounter Details Date Type Department Care Team (Late st Contact Info) Description 05/28/2023 Scanned Document [facility] GENERAL SURG SCAN General Surgery, Scan [...]
--- OUTSIDE RECORDS SUMMARY | 2025-02-02 08:26 | XMS_ITS | Clinical Summary ---
Author Organization [facility] Address [address] [place] [address] Care Team Providers Care Cadd Operator Name Role Phone Unavailable Primary Care Provider [...]
--- OUTSIDE RECORDS SUMMARY | 2025-02-02 08:26 | XMS_ITS | Referral Summary ---
Author Organization [facility] Address [address] [phone] Care Team Providers Care Ballast Regulator Operator Name Role Phone Keyur [place]rix Primary Care Provider +1- [phone] Encounters Date Type Department Care Team Description 01/27/2025 Telephone [facility] S[facility] [address] [place] [address] 47237 Potato Chip Maker: Jayla Coleman LPN 01/27/2025 Refill [facility] [address] [place] [address] 59120 Potato Chip Maker: Jayla Coleman LPN Multiple sclerosis 12/04/2024 myChart Message [facility] S[facility] [address] [place] [address] 28725 Potato Chip Maker: Coco Rodriguez MD Following up 11/30/2024 Telephone [facility] S[facility] [address] [place] [address] [phone] Potato Chip Maker: Surekha Sullivan LPN 11/18/2024 myChart Message [facility] Building Neurology Clinic [address] [place] [address] [phone] Mychart, Generic Provider MRI schedule from Last [...] Paula Milesdemetrio had her biopsy done at [facility] general surgery.A copy of the [...] Info) Description 02/11/2025 8:00 AM EDT Infusion [facility] Building Infusion Clinic [address] [place] [address] 04/20/2025 9:00 AM EDT Office Visit [facility] Sclerosis [facility] [address] [place] [address] [phone] Potato Chip Maker: Chet Villa MD [address] [place] [address] [phone] Procedures * Due to [place] state law, this organization might not be sharing negative HIV tests. Procedure Name Priority Date/Time Associated Diagnosis Comments HEPATITIS PANEL, ACUTE Routine 04/10/2017 12:22 PM EDT CD4 COUNTS Routine 07/04/2015 2:16 PM EDT from Last 3 Months or Most Recently Relevant to Health Maintenance Results * Due to [place] state law, this organization might not be sharing negative HIV tests. * Hepatitis Panel, Acute (04/10/2017 12:22 PM EDT) Hepatitis A IgM NON-REACTI VE [facility]ACT [facility] Hepatitis B Surface Antigen NON-REACTI VE NON-REACT [facility] Hepatitis B Core Antibody NON-REACTI VE [facility]-REACT [facility] Hepatitis C Antibody NON-REACTI VE NON-REACT [facility] Signal To Cut-Off 0.01 <1.00 [facility] 04/10/2017 12:2 2 PM EDT 04/10/2017 1:14 PM EDT us Norman Scales MD PhD LAB BLOOD ORDERABLES Cherelle argueta Result [facility] [address] [facility] 3rd Floor, [place] [address], [place] [phone] from Last 3 Months or Most Recently Relevant to Health Maintenance Insurance [facility] HMO/POS Care Teams Ballast Regulator Operator Relationship Specialty Start Date End Date Keyur Hendrix [address] [place] [address] PCP - General Internal Medicine 11/12/18
--- OUTSIDE RECORDS SUMMARY | 2025-02-02 08:27 | XMS_ITS | Encounter Summary ---
Author Organization [facility] Address [address] [place] [address] Care Team Providers Care Medical Secretary Receptionist Name Role Phone Keyur [place]rix Primary Care Provider +1- [phone] Encounter Details Date Type Department Care Team (Late st Contact Info) Description 03/05/2017 Orders Only [facility] Building [address] [place] [address] 14541 Norman Scales MD PhD [address] [place] [address] 9[address] Social History Tobacco Use Types Packs/Day Years [...] Info) Description 02/11/2025 8:00 AM EDT Infusion [facility] Infusion Clinic [address] [place] [address] 23434 04/20/2025 9:00 AM EDT Office Visit [facility] Multiple Sclerosis Clinic [address] [place] [address] 38641 Solar Maintenance Technician: Chet Villa MD [address] [place] [address] 71222 documented as of this encounter Visit Diagnoses Not on filedocumented in this encounter Additional Health Concerns Infection Onset Date Last Indicated Resolved Time COVID-19 - Suspected infection 02/04/2020 02/04/2020 02/04/2020 8:55 PM EDT documented as of this encounter Care Teams Medical Secretary Receptionist Relationship Specialty Start Date End Date Keyur Hendrix [address] [place] [address] 9[address]75 PCP - General Internal Medicine 11/12/18 documented as of this encounter
--- OUTSIDE RECORDS SUMMARY | 2025-02-02 08:27 | XMS_ITS | Encounter Summary ---
Author Organization [facility] Address [address] [place] [address] Care Team Providers Care Maintenance And Engineering Manager Name Role Phone Keyur [place]rix Primary Care Provider +1- [phone] Encounter Details Date Type Department Care Team (Late st Contact Info) Description 10/18/2016 Orders Only [facility] Building [address] [place] [phone] González Bass MD PhD [address] [place] [address] [phone] Social History Tobacco Use Types Packs/Day Years [...] Info) Description 02/11/2025 8:00 AM EDT Infusion [facility] Building Infusion Clinic [address] [place] [address]269 04/20/2025 9:00 AM EDT Office Visit [facility] Multiple Sclerosis Clinic [address] [place] [address] [phone] Elevator Constructor Helper: Chet Villa MD [address] [place] [address] [phone] documented as of this encounter Visit Diagnoses Not on filedocumented in this encounter Additional Health Concerns Infection Onset Date Last Indicated Resolved Time COVID-19 - Suspected infection 02/04/2020 02/04/2020 02/04/2020 8:55 PM EDT documented as of this encounter Care Teams Maintenance And Engineering Manager Relationship Specialty Start Date End Date Keyur Hendrix [address] [place] [phone] PCP - General Internal Medicine 11/12/18 documented as of this encounter
--- OUTSIDE RECORDS SUMMARY | 2025-02-02 08:27 | XMS_ITS | Encounter Summary ---
Author Organization [facility] Address [address] [place] [address] Care Team Providers Care Theatrical Rigger Name Role Phone Keyur Hendrix Primary Care Provider +1- [phone] Reason for Visit * Reason Onset Date Comments Med Refill 01/27/2025 Encounter Details Date Type Department Care Team (Late st Contact Info) Description 01/27/2025 Refill [facility] [address] [place] [phone] Machine Packager: Jayla Coleman LPN [place], [place] Multiple sclerosis Social History Tobacco Use [...] Info) Description 02/11/2025 8:00 AM EDT Infusion [facility] [address] [place] [address] [phone] 04/20/2025 9:00 AM EDT Office Visit [facility] [address] [place] [address] [phone] Machine Packager: Chet Villa MD [address] [place] [phone] documented as of this encounter Visit Diagnoses Diagnosis Multiple sclerosis documented in this encounter Care Teams Theatrical Rigger Relationship Specialty Start Date End Date Keyur Hendrix [address] [place] [phone] PCP - General Internal Medicine 11/12/18 documented as of this encounter
--- OUTSIDE RECORDS SUMMARY | 2025-02-02 08:27 | XMS_ITS | Clinical Summary ---
Author Organization [facility] Address [address] [place] [address] Care Team Providers Care Employment And Claims Aide Name Role Phone Keyur Hendrix Primary Care Provider +1- [phone] Allergies Active Allergy Reactions Criticality Noted Date [...] Paula Sevilla had her biopsy done at [facility] general surgery.A copy of the report [...] Type Department Care Team Description 01/27/2025 Telephone [facility] [address] [place] [phone] Production Team Advisor: Jayla Coleman LPN 01/27/2025 Refill [facility] [address] [place] [address] [phone] Production Team Advisor: Jayla Coleman LPN Multiple sclerosis 12/04/2024 myChart Message [facility] [address] [place] [address] [phone] Production Team Advisor: Coco Rodriguez MD Following up 11/30/2024 Telephone [facility] [address] [place] [address] [phone] Production Team Advisor: Surekha Sullivan LPN 11/18/2024 myChart Message [facility] [address] [place] [address] [phone] Mychart, Generic Provider MRI schedule from Last [...] Info) Description 02/11/2025 8:00 AM EDT Infusion [facility] [address] [place] [phone] 04/20/2025 9:00 AM EDT Office Visit [facility] [address] [place] [address] [phone] Production Team Advisor: Chet Villa MD [address] [place] [phone] Health Maintenance Due Date Last Done Comments [...] , 11/08/2014, 08/05/2012 Procedures * Due to [place] law, this organization might not be sharing negative HIV tests. Procedure Name Priority Date/Time Associated Diagnosis Comments HEPATITIS PANEL, ACUTE Routine 04/10/2017 12:22 PM EDT CD4 COUNTS Routine 07/04/2015 2:16 PM EDT from Last 3 Months or Most Recently Relevant to Health Maintenance Results * Due to [place] law, this organization might not be sharing negative HIV tests. * Hepatitis Panel, Acute (04/10/2017 12:22 PM EDT) Hepatitis A IgM NON-REACTI VE NON-REACT [facility] Hepatitis B Surface Antigen NON-REACTI VE NON-REACT [facility] Hepatitis B Core Antibody NON-REACTI VE NON-REACT [facility] Hepatitis C Antibody NON-REACTI VE NON-REACT [facility] Signal To Cut-Off 0.01 <1.00 [facility] 04/10/2017 12:2 2 PM EDT 04/10/2017 1:14 PM EDT us Norman Scales MD PhD LAB BLOOD ORDERABLES Cherelle argueta Result [facility] [address] [facility] [address] Floor, [place] [address], [place] [phone] from Last 3 Months or Most Recently Relevant to Health Maintenance Insurance [facility] HMO/POS Care Teams Employment And Claims Aide Relationship Specialty Start Date End Date Keyur Hendrix [address] [place] [address] PCP - General Internal Medicine 11/12/18
--- OUTSIDE RECORDS SUMMARY | 2025-02-02 08:27 | XMS_ITS | Encounter Summary ---
Author Organization [facility] Address [address] [place] [address] Care Team Providers Care Chauffeur Motorbus Name Role Phone Keyur Hendrix Primary Care Provider +1- [phone] Encounter Details Date Type Department Care Team (Late st Contact Info) Description 10/19/2016 Orders Only [facility] Building [address] [place] [phone] González Bass MD PhD [address] [place] [address] [phone] Social History Tobacco Use Types Packs/Day Years [...] 02/11/2025 8:00 AM EDT Infusion [facility] Infusion [facility] [address] [place] [phone] 04/20/2025 9:00 AM EDT Office Visit [facility] [address] [place] [address] [phone] Boatswain Mate: Chet Villa MD [address] [place] [address] [phone] documented as of this encounter Visit Diagnoses Not on filedocumented in this encounter Additional Health Concerns Infection Onset Date Last Indicated Resolved Time COVID-19 - Suspected infection 02/04/2020 02/04/2020 02/04/2020 8:55 PM EDT documented as of this encounter Care Teams Chauffeur Motorbus Relationship Specialty Start Date End Date Keyur Hendrix [address] [place] [address] [phone] PCP - General Internal Medicine 11/12/18 documented as of this encounter
--- OUTSIDE RECORDS SUMMARY | 2025-02-02 08:27 | XMS_ITS | Encounter Summary ---
Author Organization [facility] Address [address] [place] [address] Care Team Providers Care Photography Professor Name Role Phone Keyur Hendrix Primary Care Provider +1- [phone] Encounter Details Date Type Department Care Team (Late st Contact Info) Description 05/18/2016 Orders Only [facility] Building [address] [place] [phone] Norman Scales MD PhD [address] [place] [phone] Social History Tobacco Use Types Packs/Day Years [...] Info) Description 02/11/2025 8:00 AM EDT Infusion [facility] Building Infusion Clinic [address] [place] [phone] 04/20/2025 9:00 AM EDT Office Visit [facility] [address] [place] [address] [phone] Foster Parent: Chet Villa MD [address] [place] [address] [phone] documented as of this encounter Visit Diagnoses Not on filedocumented in this encounter Additional Health Concerns Infection Onset Date Last Indicated Resolved Time COVID-19 - Suspected infection 02/04/2020 02/04/2020 02/04/2020 8:55 PM EDT documented as of this encounter Care Teams Photography Professor Relationship Specialty Start Date End Date Keyur Hendrix [address] [place] [phone] PCP - General Internal Medicine 11/12/18 documented as of this encounter
--- OUTSIDE RECORDS SUMMARY | 2025-02-02 08:27 | XMS_ITS | Encounter Summary ---
Author Organization [facility] Address [address] [place] [address] Care Team Providers Care Loader Operator Supervisor Name Role Phone Keyur Hendrix Primary Care Provider +1- [phone] Encounter Details Date Type Department Care Team (Late Contact Info) Description 04/13/2022 myChart Message [facility] [address] [place] [address] [phone] Heydi Leung MD [address] [place] [address] [phone] vit D supplements Social History Tobacco Use [...] Info) Description 02/11/2025 8:00 AM EDT Infusion [facility] [address] [place] [address] [phone] 04/20/2025 9:00 AM EDT Office Visit [facility] [address] [place] [phone] Ui Lead Developer: Chet Villa MD [address] [place] [address] [phone] documented as of this encounter Visit Diagnoses Not on filedocumented in this encounter Care Teams Loader Operator Supervisor Relationship Specialty Start Date End Date Keyur Hendrix [address] [place] [address] [phone] PCP - General Internal Medicine 11/12/18 documented as of this encounter
--- OUTSIDE RECORDS SUMMARY | 2025-02-02 08:27 | XMS_ITS | Encounter Summary ---
Author Organization [facility] Address [address] [place] [address] Care Team Providers Care Lead Java J2Ee Developer Name Role Phone Keyur Hendrix Primary Care Provider +1- [phone] Encounter Details Date Type Department Care Team (Late st Contact Info) Description 10/05/2021 Orders Only [facility] [address] [place] [phone] [facility] Social History Tobacco Use Types Packs/Day Years [...] Description 02/11/2025 8:00 AM EDT Infusion [facility] Infusion Clinic [address] [place] [address] [phone] 04/20/2025 9:00 AM EDT Office Visit [facility] [address] [place] [address] [phone] Manager Land: Chet Villa MD [address] [place], [place] [phone] documented as of this encounter Visit Diagnoses Not on filedocumented in this encounter Care Teams Lead Java J2Ee Developer Relationship Specialty Start Date End Date Keyur Hendrix [address] [place] [address] [phone] PCP - General Internal Medicine 11/12/18 documented as of this encounter
[2025-02-02 10:56] LABS: MANUAL DIFF FLAG NO
[2025-02-02 11:15] LABS: Basophils Percent Auto 0.9 % (0-2); Eosinophils Percent Auto 1.2 % (0-4); Hematocrit 43.4 % (37.0-47.0); Hemoglobin 14.4 g/dl (12.0-16.0); Imm Gran Abs Auto 0.03 X10*3/uL (0.00-0.03); Imm Gran Pct Auto 0.9 % (0.0-0.4); Lymphocytes Absolute Auto 0.7 X10*3/uL (1.2-4.9); Lymphocytes Percent Auto 19.3 % (20-40); Mean Corpuscular HGB Conc 33.2 g/dl (31.0-35.0); Mean Corpuscular Hemoglobin 29.8 pg (27.0-33.0); Mean Corpuscular Volume 89.7 fL (80.0-98.0); Monocytes Absolute Auto 0.4 X10*3/uL (0.1-1.2); Neutrophils Absolute Auto 2.3 x10*3/uL (2.0-8.3); Neutrophils Percent Auto 65.7 % (45-73); Platelet Count 247 X10*3/uL (160-400); Red Blood Count 4.84 X10*6/uL (4.20-5.50); Red Cell Distribution Width 12.2 % (11.0-16.0); White Blood Count 3.4 X10*3/uL (4.8-10.8)
[2025-02-02 11:21] LABS: Estimated Average Glucose 105 mg/dL; Hemoglobin A1C 131.3402 umol/L; Hemoglobin A1c % 5.3 % (<6.0); Total Hemoglobin (HGBA1C) 3802.6402 umol/L
[2025-02-02 11:34] LABS: Alanine Aminotransferase 21 U/L (0-31); Albumin Level 4.5 g/dL (3.5-5.0); Alkaline Phosphatase 126 U/L (39-117); Anion Gap 9 (12-20); Aspartate Amino Transferase 26 U/L (5-31); Bilirubin Direct 0.1 mg/dL (0.0-0.5); Bilirubin Total 0.5 mg/dL (0.0-1.0); Blood Urea Nitrogen 19 mg/dL (9-16); Calcium 9.7 mg/dL (8.4-10.2); Carbon Dioxide 28 mmol/L (22-29); Chloride 107 mmol/L (96-108); Cholesterol 164 mg/dL (<200); Estimated Glomerular Filt Rate 57; Glucose Fasting 93 mg/dL (60-99); HDL Cholesterol 36 mg/dL (>40); LDL Cholesterol Calculated 110 mg/dL (<100); Magnesium 2.4 mg/dL (1.6-2.6); Potassium 3.8 mmol/L (3.3-5.1); Sodium 140 mmol/L (135-145); Total Protein 6.8 g/dL (6.5-8.0); Triglycerides 94 mg/dL (<150)
[2025-02-02 11:42] LABS: TSH reflex Free T4 1.74 uIU/mL (0.32-4.0); Vitamin D 25-OH Total 10.2 ng/mL (>30)
[2025-02-02 12:00] LABS: Folate 14.1 ng/mL (> or = 4.0); Vitamin B12 < 148 pg/mL (200-900)
== END 2025-02-02 08:21 | disposition home or self-care (01) ==
LOC: HO.10HDL 08:20
PROVIDERS: Visit Provider Physician Assistant Medical
DX: Z00.00 Encounter for general adult medical examination without abnormal findings (principal)
CPT/HCPCS: 36415; 80053; 80061; 80076; 82248; 82306; 82607; 82746; 83036; 83735; 84443; 85025

== ENCOUNTER 2025-07-29 16:31 | Outpatient (AMB) | payer BC, SELFPAY ==
--- NOTE | 2025-07-29 16:33 | AM.OFFWIN_ITS ---
Intake Vital Signs 07/29/25 16:37 Height 5 ft 4 in Weight 113 lb 4 oz BMI 19.4 BP 138/60 Blood Pressure Location Lt brachial Position Sitting Respiration 16 Pulse 79 Pulse Source Monitor Temp 97.9 F Temp Source Oral Pulse Oximetry (%) 100 Oxygen Delivery Method Room Air Intake Visit Reasons: EP - Right Eye Intake Note: Eye blurriness on and off. Has happened 2-3 times today that will last no longer than hour. Has called neuro and also has an appointment with the optomology. L 20/25 R 20/50 Bilateral 20/20 Patient Tobacco Use Status: Never used Tobacco Quality Control Industrial Engineer Required: No Allergies metoclopramide (From Reglan) Allergy (Mild, Verified 01/28/25 16:14) RASH pantoprazole (From Protonix) Allergy (Mild, Verified 01/28/25 16:14) RASH pollen extracts (POLLEN) Allergy (Mild, Verified 01/28/25 16:14) SNEEZING,ITCHING,WATERY EYES adhesive tape Allergy (Unknown, Verified 01/28/25 16:14) RASH amoxicillin (Augmentin) Allergy (Unknown, Verified 01/28/25 16:14) vomiting bloody foam cephalexin (From KEFLEX) Allergy (Unknown, Verified 01/28/25 16:14) RASH, ITCHY clavulanic acid (Augmentin) Allergy (Unknown, Verified 01/28/25 16:14) vomiting bloody foam latex (LATEX) Allergy (Unknown, Verified 01/28/25 16:14) RASH shellfish derived Allergy (Unknown, Verified 01/28/25 16:14) RASH/NAUSEA & VOMITING Sulfa (Sulfonamide Antibiotics) Allergy (Unknown, Verified 01/28/25 16:14) rash sulfamethoxazole (From Bactrim) Allergy (Unknown, Verified 01/28/25 16:14) RASH trimethoprim (From Bactrim) Allergy (Unknown, Verified 01/28/25 16:14) RASH ciprofloxacin (From Cipro) Adverse Reaction (Unknown, Verified 01/28/25 16:14) SWEATING, LIGHT HEADEDNESS, NAUSEA, DOUBLE VISION Latex Allergy (Unknown, Uncoded 01/28/25 16:14) hives HPI HPI Comments History of Present Illness Details History of Present Illness The patient is a 60-year-old female with a past medical history of multiple sclerosis who presents with intermittent blurry vision in the right eye. - The patient reports experiencing three episodes of blurry vision in her right eye today, with each episode lasting for about 20 minutes. - She describes the episodes as blurrine ss accompanied by a decrease of peripheral vision - The patient has a long-standing diagno sis of multiple sclerosis and has a history of eye problems, including optic nerve lesions. - Patient reports she has a history of M S-related visual auras, however todays episodes felt different - She reports her vision currently is ba ck to her baseline. - The patient's usual auras begin as a c lear dot, become surrounded by rainbow- colored lights, turn into a checkerboard, and progressively enlarge before resolving. - She denies any associated eye pain, di scharge, or tearing during these episodes. During the episodes of blurriness, she denies any spots, flahses of light, or floaters in her vision. She denies any loss of vision such as a curtain coming down - She also denies any severe headaches, but notes some sinus pressure she attributes to indoor allergies. - After experiencing today's symptoms, s he contacted her neurologist, who advised her to seek an evaluation at an urgent care center. Review of Systems Constitutional: Negative for fevers, chills Eyes: Reports intermittent blurry vision of the right eye. Negative for eye pain, eye discharge, eye redness, photophobia, loss of vision. Neurological: Negative for dizziness, headaches, light headedness, numbness, we akness Physical Exam General Appearance: Normal appearance, well developed. No acute distress Head: Normocephalic, atraumatic Eyes: PEERLA. EOM intact. Peripheral lima intact. No conjunctival injection or discharge. No swelling or erythema of the eye lids. Pulmonary: No respiratory distress. Speaking in full sentences Musculoskeletal: Moving all extremities spontaneously and against gravity Mental Status: Alert and Oriented x 3 Psychiatric: Normal mood. Normal affect. [facility] Medical History (Updated 02/05/25 @ 13:01 by Simran Pina PA-C) Vitamin D deficiency Vitamin B12 deficiency History of mammogram (~01/15/25) Hyperlipidemia Elevated alkaline phosphatase level Leukopenia Bursitis of right ankle Cervical cancer screening Multiple sclerosis Surgical History History of biopsy History of D&C H/O right breast biopsy History of appendectomy History of section History of wisdom tooth extraction Family History Father Colon cancer Past heart attack Hypertension Mother Hyperlipidemia Brother No problems noted. Sister No problems noted. Social History Housing: House Alcohol intake: never Patient Tobacco Use Status: Never used Tobacco e-Cigarette/Vaping Use: Never Used Second Hand Smoke Exposure: No service: No Current occupational status: disabled Cognitive needs: Yes (cane) Hearing needs: No Vision needs: No Physical Exam Vital Signs: Last Vital Signs Temp 97.9 F 07/29/25 16:37 Pulse 79 07/29/25 16:37 Resp 16 07/29/25 16:37 BP 138/60 07/29/25 16:37 Pulse Ox 100 07/29/25 16:37 Oxygen Delivery Method Room Air 07/29/25 16:37 BMI result Body Mass Index 19.4 Office Procedures Vision Screening Right Eye: 20/50 Left Eye: 20/25 24857 - Vision Screening Assessment & Plan Assessment & Plan (1) Blurry vision, right eye: Code(s): H53.8 - Other visual disturbances Plan - The patient is a 60-year-old female with a history of multiple sclerosis presenting with transient episodes of blurry vision in the right eye. - She currently reports her vision is back to her baseline. She denies any other new neurological deficits. - She has been trying to establish with an legislative correspondent in [facility], but has been having difficulty getting an appointment - Her eye exam today is unremarkable, however unable to perform a slit-lamp examination in office - Discussed visual acuity testing of 20/50 in her right eye, however it appears this is not new for her. - The intermittent nature of the symptoms may be a manifestation of her underlying MS. Discussed other differentials such as retinal detachment or retinal artery occlusion which would be ocular emergencies, however lower concern at this time based on history and physical - The patient will follow up with her neurologist and will call their office tomorrow. - Provided phone numbers for local ophthalmology offices for sooner appointment. - Strict precautions were given. The patient was instructed to seek emergent medical care if she experiences partial/total loss of vision, persistent changes in vision, or eye pain. Patient was informed and verbally consented to the use of an ambient scribe for clinic note documentation during the visit. Coding Level of Care Code Est Pt Level 3 (72141) Diagnoses Blurry vision, right eye H53.8 CPT Codes Vision Screening - Vision Screenin - Vision Screening ([id number])
[2025-07-29 16:37] VITALS: BP 138/60; PULSE 79; RESP 16; TEMP 36.6; O2SAT 100; BMI 19.4
--- OUTSIDE RECORDS SUMMARY | 2025-07-29 18:53 | XMS_ITS | Encounter Summary ---
Author Organization [facility] Address [address] [place] [address] Care Team Providers Care Director Energy Name Role Phone Unavailable Primary Care Provider Unavailabl e Encounter Details Date Type Department Care Team (Late st Contact Info) Description 05/28/2023 Scanned Document [facility] GENERAL SURG SCAN General Surgery, Scan [...]
--- OUTSIDE RECORDS SUMMARY | 2025-07-29 18:53 | XMS_ITS | Clinical Summary ---
Author Organization [facility] Address [address] [place] [address] Care Team Providers Care Wheel Assembler Name Role Phone Keyur Hendrix Primary Care Provider Allergies Active Allergy Reactions Criticality Noted Date [...] (Ocrevus) 30 mg/mL injection solutionIndica tions:Multiple sclerosis Infuse 20 mL (600 mg total) intravenously every 5 months. 20 mL 1 07/16/2025 9:45 AM EDT 5 Active predniSONE (DELTASONE) 10 mg tabletIndicati ons:Multiple sclerosis Take one tablet by mouth the evening prior to Ocrevus infusion and one tablet by mouth the morning of infusion 2 tablet 10/28/202 5 Active Active Problems Patient Care Coordination No te Formatting of this note migh t be different from the original. Paula Sevilla had her biopsy done at [facility] general surgery.A copy of the report is on your mailbox. Thank you Problem Noted Date Diagnosed Date Elevated alkaline phosphatase level 04/20/2025 Assessment & Plan (04/20/2025 10:02 AM EDT): PLAN: We will refer her to GI. Right foot pain 03/25/2024 Sebaceous cyst 05/27/2023 [...] 01/11/2015 Multiple sclerosis 11/08/2014 Assessment & Plan (04/20/2025 10:02 AM EDT): PLAN: 1. We we will continue with ocrelizumab infusions every 5 months. 2. We will obtain MRI of the brain in 6 months 3. Continue with physical activity. 4. We will obtain immunoglobulin levels to assess her immune status on ocrelizumab. 5. We will refer her to occupational therapy for difficulties with coordination. 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 Migraine headache 12/31/2011 Perioral dermatitis 12/27/2011 Vitamin D deficiency 09/11/2011 Assessment & Plan (04/20/2025 10:01 AM EDT): PLAN: 1. We will restart vitamin D with high dose to due to low levels Assessment & Plan (10/23/2023 4:18 PM EST): [...] Encounters Date Type Department Care Team Description 07/29/2025 Telephone [facility] [address] [place] [address] Sugar Coating Hand: Jayla Coleman LPN 07/23/2025 Telephone [facility] [address] [place] [address] 6[address] Sugar Coating Hand: Felisa Mcrae LPN 07/22/2025 9:00 AM EST Infusion [facility] Building Infusion Clinic [address] [place] [address]57 Chelsi Moralez RN Multiple sclerosis (Primary Dx) 07/13/2025 Refill [facility] [address] [place] [address] 75582 Sugar Coating Hand: Felisa Mcrae LPN Multiple sclerosis 2025 Refill [facility] [address] [place] [address] 62789 Sugar Coating Hand: Chet Villa MD Multiple sclerosis 06/24/2025 Orders Only [facility] [address] [place] [address] 18625 Sugar Coating Hand: Abdullahi Noonan MD 06/04/2025 Orders Only External Imaging [address] [place] [address] Radiology, External 05/26/2025 10:00 AM EDT Office Visit [facility] [address] [place] [address] 79[address] Sugar Coating Hand: Prema Andrade MD Multiple sclerosis (Primary Dx); Visual disturbance; Vitamin D deficiency 05/20/2025 Telephone [facility] [address] [place] [address]88 Sugar Coating Hand: Jayla Coleman LPN from Last 3 Months Family History Medical [...] Sign Reading Time Taken Comments Blood Pressure 112/68 07/22/2025 2:49 PM EST Pulse 74 07/22/2025 2:49 PM EST Temperature 36.7 C (98.1 F) 07/22/2025 2:49 PM EST Respiratory Rate 18 07/22/2025 2:49 PM EST Oxygen Saturation 97% 07/22/2025 2:49 PM EST Inhaled Oxygen Concentration - - Weight 50.7 kg (111 lb 12.4 oz) 07/22/2025 9:27 AM EST Height 161.1 cm (5' 3.43 ) 07/22/2025 9:27 AM ES T Body Mass Index 19.54 07/22/2025 9:27 AM EST Plan of Treatment Upcoming Encounters Date Type Department Care Team (Late st Contact Info) Description 09/24/2025 11:00 AM EST Office Visit [facility] [address] [place] [address] Chet Aguilar MD [address] [place] [address] Hellen Braun MD [address] [place] [address] 10/25/2025 9:00 AM EST Office Visit [facility] [address] [place] [address] 96498 Sugar Coating Hand: Chet Villa MD [address] [place] [address] 12/23/2025 9:00 AM EDT Infusion [facility] Building Infusion Clinic [address] [place] [address] 02/21/2026 2:00 PM EDT Office Visit [facility]astroenterology [facility] [address] [place] [address] Sugar Coating Hand: Chet Tovar MD [address] [place] [address] 49[address] Shannan Barber MD [address] [place] [address] Health Maintenance Due Date Last Done Comments [...] 2016 Zoster Vaccines (1 of 2) 2016 Alcohol/Substance Use Screening 09/16/2024 Depression Screening and Follow-Up 09/16/2024 Social Drivers of Health Isabella ual Screening 09/16/2024 Influenza Vaccine (#1) 2025 COVID-19 Vaccine (2024-2 6 season) 2025 08/24/2021, 02/03/2021, 01/13/2021 Cologuard 02/02/2027 02/03/2024, 01/15, 11/08/2020 Colon Cancer Screening 02/02/2027 HIV Screening Completed 04/10/2017, 06/16, 03/08/2014, Additional history exists Hepatitis C Screening Completed 04/10/2017 , 11/08/2014, 08/05/2012 Procedures * Due to [place] state law, this organization might not be sharing negative HIV tests. Procedure Name Priority Date/Time Associated Diagnosis Comments IMAGING - SCANNED Routine 06/24/2025 12: 10 PM EDT HEPATITIS PANEL, ACUTE Routine 04/10/2017 12:22 PM EDT CD4 COUNTS Routine 07/04/2015 2:16 PM EDT from Last 3 Months or Most Recently Relevant to Health Maintenance Results * Due to [place] state law, this organization might not be sharing negative HIV tests. * IMAGING - SCANNED (06/24/2025 12:10 PM EDT) Anatomical Region Laterality Modality Other us Unknown Provider MD SCANNED PROCEDURES Final Res ult * Hepatitis Panel, Acute (04/10/2017 12:22 PM EDT) Hepatitis A IgM NON-REACTI VE NON-REACT [facility] Hepatitis B Surface Antigen NON-REACTI VE NON-REACT [facility] Hepatitis B Core Antibody NON-REACTI VE NON-REACT [facility] Hepatitis C Antibody NON-REACTI VE NON-REACT [facility] Signal To Cut-Off 0.01 <1.00 [facility] 04/10/2017 12:2 2 PM EDT 04/10/2017 1:14 PM EDT us Norman Scales MD PhD LAB BLOOD ORDERABLES Cherelle l Result BARAK BENAVIDES [address] [facility] [address], [place] [address], [place] [phone] from Last 3 Months or Most Recently Relevant to Health Maintenance Insurance [facility] HMO/POS Care Teams Wheel Assembler Relationship Specialty Start Date End Date Keyur Hendrix [address] [place] [address] PCP - General Internal Medicine 11/12/18
--- OUTSIDE RECORDS SUMMARY | 2025-07-29 18:53 | XMS_ITS | Encounter Summary ---
Author Organization [facility] Address [address] [place] [address] Care Team Providers Care Derrick Boat Captain Name Role Phone Keyur Hendrix Primary Care Provider [phone] Encounter Details Date Type Department Care Team (Late st Contact Info) Description 07/29/2025 Telephone [facility] [address] [place] [address] Computer Programming Professor: Jayla Coleman LPN [facility] [place], [place] Social History Tobacco Use Types Packs/Day [...] Telephone Encounter - Jayla Meneses LPN - 07/29/2025 3:01 PM EST Patient called . I told her to go to urgent care. She will go today * Telephone Encounter - Jayla Meneses LPN - 07/29/2025 2:57 PM EST Call to patient I had to leave voice message to go to urgent care for this and to call back if any questions. * Telephone Encounter - Jayla MenesesSTANLEY - 07/29/2025 2:18 PM EST She is having a new issue with her vision her right eye is losing vision.it comes and goes throughout the day and has lasted from 30 minutes to 1 hour. And this time it has been over an hour and still has blurred vision. Please advise documented in this encounter Plan of Treatment Upcoming Encounters Date Type Department Care Team (Late st Contact Info) Description 09/24/2025 11:00 AM EST Office Visit [facility] [address] [place] [address] Chet Aguilar MD [address] [place] [address] 27[address] Hellen Braun MD [address] [place] [address] 10/25/2025 9:00 AM EST Office Visit [facility] [address] [place] [address] Computer Programming Professor: Chet Villa MD [address] [place] [address] 12/23/2025 9:00 AM EDT Infusion [facility] Building Infusion Clinic [address] [place] [address] 02/21/2026 2:00 PM EDT Office Visit [facility] Gastroenterology [facility] [address] [place] [address] 6[address] Computer Programming Professor: Chet Tovar MD [address] [place] [address] Shannan Barber MD [address] [place] [address] documented as of this encounter Visit Diagnoses Not on filedocumented in this encounter Care Teams Derrick Boat Captain Relationship Specialty Start Date End Date Keyur Hendrix [address] [place] [address] PCP - General Internal Medicine 11/12/18 documented as of this encounter
--- OUTSIDE RECORDS SUMMARY | 2025-07-29 18:53 | XMS_ITS | Encounter Summary ---
Author Organization [facility] Address [address] [place] [address] Care Team Providers Care V Belt Builder Name Role Phone Unavailable Primary Care Provider Unavailabl e Encounter Details Date Type Department Care Team (Late st Contact Info) Description 02/19/2019 Scanned Document [address] [place] [address] Keyur Hendrix MD [address] [place] [address] Social History Tobacco Use Types Packs/Day Years [...]
--- OUTSIDE RECORDS SUMMARY | 2025-07-29 18:54 | XMS_ITS | Patient Health Record ---
Author Organization [facility] Address [address] [place] [address] Care Team Providers Care Welcome Desk Agent Name Role Phone Aidee Celestino Primary Care Provider Jorge Barnhart Sapnaadriano Moodya Unavailable Allergies Allergen (clinical drug ingredient) Drug/Non Drug Allergy documented on EMR Reaction Allergy Type Onset Date Status CEPHADYN (uncoded) Unknown Allergy A ctive amoxicillin / clavulanate Augmentin Unknown Drug Allergy Active sulfamethoxazole / trimethoprim Bactrim Unknown Drug Allergy Active ciprofloxacin Cipro Unknown Drug Allergy Act melida pantoprazole Protonix Unknown Drug Allergy Acti ve Latex Latex Unknown Allergy Active Reason For Referral No Information Medications Medication SIG (Take, Route, Frequency, Duration) Notes Start Date End Date Status Vitamin B-12 *Please review a nd pick correct strength-formulation from [employer] options. If intended option is not shown, discontinue and re-order from Quick Search* Active Problems Problem Type SNOMED Code ICD Code Onset Dates Problem Status W/U Status Risk Notes Problem Information temporarily unavailable Sjogren's disease (710.2) Active confirmed Plan Of Treatment No Information Insurance Providers Payer Name Payer Address Payer Phone Subscriber Number Group Number Insured Name Patient Relationship to Insured Coverage Start Date Coverage End Date [facility] [address] [place] [address] [id number] Paula Graves Self - patient is the insured Medical (General) History Medical History History ICD Code no Vit D Surgical History Surgery Date(Month/Year) appendectomy breast lumpectomy wisdom teeth D and C x 2 dental
--- OUTSIDE RECORDS SUMMARY | 2025-07-29 18:54 | XMS_ITS | Clinical Summary ---
Author Organization [facility] Address [address] [facility] [address] [place] [address] Phone Care Team Providers Care Agency Manager Name Role Phone Aidee Celestino Peterson Primary Care Provider [phone]- [phone] Allergies Active Allergy Reactions Criticality Noted Date Comments Adhesive Tape-Silicones 11/29/2016 Augmentin (Amoxicillin-Pot Clavulanate) 11/29/2016 Bactrim (Sulfamethoxazole-Trimethoprim) 11/29/2016 Cephalexin 11/29/2016 Cipro (Ciprofloxacin) 11/29/2016 Latex, Natural Rubber 11/29/2016 Protonix (Pantoprazole) 11/29/2016 Medications cyanocobalamin, vitamin B-12, (B-12 COMPLIANCE) 1,000 mcg/mL Kit Inject 1,000 mcg as directed every 28 days. Use as directed Active glatiramer (GLATIRAMER ACETATE) 40 mg/mL Syrg subcutaneous syringe Inject 40 mg under the skin 3 (three) times a week. Active Family History Medical History Relation Comments Hypertension Father No Known Problems Mother Relation Status Comments Father Mother Social History Tobacco Use Types Packs/Day Years Used Date Smoking Tobacco: Never Education Answer Date Recorded Are you interested in more education? Not on waldemar e 01/11/2023 Are you concerned about learning? Not on file 01/11/2023 No 01/11/2023 No 01/11/2023 Digital Access Answer Date Recorded No 02/11/2023 No 02/11/2023 No 02/11/2023 Reliable internet access at home? Not on file 02/11/2023 Device with a working camera? Not on file Comments Unknown Sex and Gender Information Value Date Recorded Sex Assigned at Not on file Legal Sex Female 4:31 PM EST Gender Identity Not on file Sexual Orientation Not on file Plan of Treatment Health Maintenance Due Date Last Done Comments Adult Td,Tdap Booster 1966 LIPID PANEL 1966 DEPRESSION SCREENING 1978 HEPATITIS C SCREENING 1984 HIV ONE-TIME SCREENING (18-6 5 YEARS) 1984 PAP SMEAR 1987 MAMMOGRAM 2006 COLOGUARD 2011 COLONOSCOPY 2011 COLORECTAL CANCER SCREENING 2011 FIT TEST 2011 FOBT 2011 SIGMOIDOSCOPY 2011 VIRTUAL COLONOSCOPY 2011 PNEUMOCOCCAL VACCINES (50+ y ears) (1 of 1 - PCV) 2016 ZOSTER VACCINES (1 of 2) 2016 INFLUENZA VACCINE (#1) 2025 COVID-19 VACCINE (1 - 2024-2 6 season) 2025 RSV VACCINE (1 - 1-dose 75+ series) 2041 SMOKING STATUS SCREENING (On ce After 26 Yrs) Completed 11/29/2016 HEPATITIS A VACCINES Aged Out No long er eligible based on patient's age to complete this topic HIB VACCINES Aged Out No longer eligi ble based on patient's age to complete this topic IPV VACCINES Aged Out No longer eligi ble based on patient's age to complete this topic MENINGOCOCCAL VACCINES (ACWY) Aged Out No longer eligible based on patient's age to complete this topic MENINGOCOCCAL VACCINES (B) Aged Out N o longer eligible based on patient's age to complete this topic Medical Devices Not on file Insurance [facility] [employer] [place] [place] [facility] H[facility] [place] [employer] [place]ES [place] [facility] POS [place] [facility] [place] [id number] [facility] [place] [id number] [facility] POS [facility] Care Teams Agency Manager Relationship Specialty Start Date End Date Celestino Hoskins DO [address] [place] [address] PCP - General Internal Medicine 10/30/16 Additional Source Comments The information contained in this document represents components of the legal health record. It is not the complete legal health record.Located Within [facility]
--- OUTSIDE RECORDS SUMMARY | 2025-07-29 18:54 | XMS_ITS | Encounter Summary ---
Author Organization [facility] Address [address] [place] [address] Care Team Providers Care Pyrotechnic Mixer Name Role Phone Keyur Hendrix Primary Care Provider Encounter Details Date Type Department Care Team (Late st Contact Info) Description 03/05/2017 Orders Only [facility] ACC Building [address] [place] [address] Norman Scales MD PhD [address] [place] [address] Social History Tobacco Use Types Packs/Day Years [...] Description 09/24/2025 11:00 AM EST Office Visit [facility] [address] [place] [address] Chet Aguilar MD [address] [place] [address] Hellen Braun MD [address] [place] [address] 10/25/2025 9:00 AM EST Office Visit [facility] S[facility] [address] [place] [address]29 Boat Officer: Chet Villa MD [address] [place] [address] 12/23/2025 9:00 AM EDT Infusion [facility] ACC Building Infusion Clinic [address] [place] [address] 19282 02/21/2026 2:00 PM EDT Office Visit [facility] Gastroenterology [facility] [address] [place] [address] 82787 Boat Officer: Chet Tovar MD [address] [place] [address]657 Shannan Barber MD [address] [place] [address]661 documented as of this encounter Visit Diagnoses Not on filedocumented in this encounter Additional Health Concerns Infection Onset Date Last Indicated Resolved Time COVID-19 - Suspected infection 02/04/2020 02/04/2020 02/04/2020 8:55 PM EDT documented as of this encounter Care Teams Pyrotechnic Mixer Relationship Specialty Start Date End Date Keyur Hendrix [address] [place] [address] PCP - General Internal Medicine 11/12/18 documented as of this encounter
--- OUTSIDE RECORDS SUMMARY | 2025-07-29 18:54 | XMS_ITS | Encounter Summary ---
Author Organization [facility] Address [address] [place] [address] Care Team Providers Care Director Of Land Acquisition Name Role Phone Keyur Hendrix Primary Care Provider Encounter Details Date Type Department Care Team (Late st Contact Info) Description 10/19/2016 Orders Only [facility] ACC Building [address] [place] [address] González Bass MD PhD [address] [place] [address] Social History Tobacco Use Types Packs/Day Years [...] Description 09/24/2025 11:00 AM EST Office Visit [facility] Eye [address] [address] Chet Aguilar MD [address] [place] [address]81 Hellen Braun MD [address] [place] [address] 10/25/2025 9:00 AM EST Office Visit [facility] [address] [place] [address]750 Counselor Education Professor: Chet Villa MD [address] [place] [address] 12/23/2025 9:00 AM EDT Infusion [facility] ACC Building Infusion Clinic [address] [place] [address] 23867 02/21/2026 2:00 PM EDT Office Visit [facility] Gastroenterology Clinic [address] [place] [address] 34291 Counselor Education Professor: Chet Tovar MD [address] [place] [address] 46771 Shannan Barber MD [address] [place] [address] 33804 documented as of this encounter Visit Diagnoses Not on filedocumented in this encounter Additional Health Concerns Infection Onset Date Last Indicated Resolved Time COVID-19 - Suspected infection 02/04/2020 02/04/2020 02/04/2020 8:55 PM EDT documented as of this encounter Care Teams Director Of Land Acquisition Relationship Specialty Start Date End Date Keyur Hendrix [address] [place] [address] PCP - General Internal Medicine 11/12/18 documented as of this encounter
--- OUTSIDE RECORDS SUMMARY | 2025-07-29 18:54 | XMS_ITS | Encounter Summary ---
Author Organization [facility] Address [address] [place] [address] Care Team Providers Care Electric Spot Welder Name Role Phone Keyur Hendrix Primary Care Provider Encounter Details Date Type Department Care Team (Late st Contact Info) Description 10/18/2016 Orders Only [facility] ACC Building [address] [place] [address] González Bass MD PhD [address] [place] [address] Social History Tobacco Use Types Packs/Day Years [...] Description 09/24/2025 11:00 AM EST Office Visit [facility] Eye [address] [address] Chet Aguilar MD [address] [place] [address] 477[address] Hellen Braun MD [address] [place] [address] 10/25/2025 9:00 AM EST Office Visit [facility] [address] [place] [address] Glass Rolling Machine Operator: Chet Villa MD [address] [place] [address] 56581 12/23/2025 9:00 AM EDT Infusion [facility] Building Infusion Clinic [address] [place] [address] 02/21/2026 2:00 PM EDT Office Visit [facility] [address] [place] [address] 52569 Glass Rolling Machine Operator: Chet Tovar MD [address] [place] [address] Shannan Barber MD [address] [place] [address] documented as of this encounter Visit Diagnoses Not on filedocumented in this encounter Additional Health Concerns Infection Onset Date Last Indicated Resolved Time COVID-19 - Suspected infection 02/04/2020 02/04/2020 02/04/2020 8:55 PM EDT documented as of this encounter Care Teams Electric Spot Welder Relationship Specialty Start Date End Date Keyur Hendrix [address] [place] [address] PCP - General Internal Medicine 11/12/18 documented as of this encounter
--- OUTSIDE RECORDS SUMMARY | 2025-07-29 18:54 | XMS_ITS | Encounter Summary ---
Author Organization [facility] Address [address] [place] [address] Care Team Providers Care Assistant Manager Trainee Name Role Phone Keyur Hendrix Primary Care Provider [phone] Encounter Details Date Type Department Care Team (Late st Contact Info) Description 07/18/2021 myChart Message [facility] Revenue Cycle Management [address] [place], [place] [phone] Mychart, Generic Provider [address] [place] [address] payment plan Social History Tobacco [...] Description 09/24/2025 11:00 AM EST Office Visit [facility] Eye [address] [address] Chet Aguilar MD [address] [place] [address] Hellen Braun MD [address] [place] [address] 10/25/2025 9:00 AM EST Office Visit [facility] Multiple Sclerosis Clinic [address] [place] [address] Fuel Verification Technician: Chet Villa MD [address] [place] [address] 12/23/2025 9:00 AM EDT Infusion [facility] ACC Building Infusion Clinic [address] [place] [address] 02/21/2026 2:00 PM EDT Office Visit [facility] Gastroenterology Clinic [address] [place] [address] Fuel Verification Technician: Chet Tovar MD [address] [place] [address] Shannan Barber MD [address] [place] [address] 11948 documented as of this encounter Visit Diagnoses Not on filedocumented in this encounter Care Teams Assistant Manager Trainee Relationship Specialty Start Date End Date Keyur Hendrix [address] [place] [phone] PCP - General Internal Medicine 11/12/18 documented as of this encounter
--- OUTSIDE RECORDS SUMMARY | 2025-07-29 18:54 | XMS_ITS | Encounter Summary ---
Author Organization [facility] Address [address] [place] [address] Care Team Providers Care Battalion Fire Chief Name Role Phone Keyur Hendrix Primary Care Provider Encounter Details Date Type Department Care Team (Late st Contact Info) Description 10/05/2021 Orders Only [facility] [address] [place] [address] Mor Hardin, jn Social History Tobacco Use Types Packs/Day Years [...] Description 09/24/2025 11:00 AM EST Office Visit [facility] [address] [place] [phone] Chet Aguilar MD [address] [place] [phone] Hellen Braun MD [address] [place] [phone] 10/25/2025 9:00 AM EST Office Visit [facility] [address] [place] [phone] Groundsman: Chet Villa MD [address] [place] [address] 12/23/2025 9:00 AM EDT Infusion [facility]fusion [facility] [address] [place] [address] 02/21/2026 2:00 PM EDT Office Visit [facility] [address] [place] [address] Groundsman: Chet Tovar MD [address] [place] [address] Shannan Barber MD [address] [place] [phone] documented as of this encounter Visit Diagnoses Not on filedocumented in this encounter Care Teams Battalion Fire Chief Relationship Specialty Start Date End Date Keyur Hendrix [address] [place] [phone] PCP - General Internal Medicine 11/12/18 documented as of this encounter
--- OUTSIDE RECORDS SUMMARY | 2025-07-29 18:54 | XMS_ITS | Encounter Summary ---
Author Organization [facility] Address [address] [place] [address] Care Team Providers Care Silicator Name Role Phone Keyur Hendrix Primary Care Provider Encounter Details Date Type Department Care Team (Late st Contact Info) Description 05/18/2016 Orders Only [facility] Building [address] [place] [address] Norman Scales MD PhD [address] [place] [phone] Social History Tobacco Use Types Packs/Day Years [...] Description 09/24/2025 11:00 AM EST Office Visit [facility] [address] [place] [phone] Chet Aguilar MD [address] [place] [address] Hellen Braun MD [address] [place] [address] 10/25/2025 9:00 AM EST Office Visit [facility] [address] [place] [phone] Ultrasound Tech: Chet Villa MD [address] [place] [address] 12/23/2025 9:00 AM EDT Infusion [facility] [address] [place] [address] 02/21/2026 2:00 PM EDT Office Visit [facility] [address] [place] [address] Ultrasound Tech: Chet Tovar MD [address] [place] [phone] Shannan Barber MD [address] [place] [phone] documented as of this encounter Visit Diagnoses Not on filedocumented in this encounter Additional Health Concerns Infection Onset Date Last Indicated Resolved Time COVID-19 - Suspected infection 02/04/2020 02/04/2020 02/04/2020 8:55 PM EDT documented as of this encounter Care Teams Silicator Relationship Specialty Start Date End Date Keyur Hendrix [address] [place] [address] PCP - General Internal Medicine 11/12/18 documented as of this encounter
--- OUTSIDE RECORDS SUMMARY | 2025-07-29 18:54 | XMS_ITS | Encounter Summary ---
Author Organization [facility] Address [address] [place] [address] Care Team Providers Care Cylinder Die Machine Operator Name Role Phone Keyur Hendrix Primary Care Provider Encounter Details Date Type Department Care Team (Late st Contact Info) Description 04/13/2022 myChart Message [facility] [address] [place] [address] Heydi Leung MD [address] [place] [phone] vit D supplements Social History Tobacco Use [...] Description 09/24/2025 11:00 AM EST Office Visit [facility] [address] [place] [address] Chet Aguilar MD [address] [place] [phone] Hellen Braun MD [address] [place] [address] 10/25/2025 9:00 AM EST Office Visit [facility] [address] [place] [phone] Bone Density Technician: Chet Villa MD [address] [place] [phone] 12/23/2025 9:00 AM EDT Infusion [facility]fusion [facility] [address] [place] [address] 02/21/2026 2:00 PM EDT Office Visit [facility] [address] [place] [address] Bone Density Technician: Chet Tovar MD [address] [place] [address] Shannan Barber MD [address] [place] [address] documented as of this encounter Visit Diagnoses Not on filedocumented in this encounter Care Teams Cylinder Die Machine Operator Relationship Specialty Start Date End Date Keyur Hendrix [address] [place] [phone] PCP - General Internal Medicine 11/12/18 documented as of this encounter
--- OUTSIDE RECORDS SUMMARY | 2025-07-29 18:54 | XMS_ITS | Patient Health Record ---
Author Organization [facility] Address [address] [place] [id number] Care Team Providers Care Predatory Animal Trapper Name Role Phone Ludin Trammell Unavailable [phone] Reason For Referral No Information Plan Of Treatment No Information
--- OUTSIDE RECORDS SUMMARY | 2025-07-29 18:54 | XMS_ITS | Clinical Summary ---
Author Organization [facility] Address [address] [place] [address] Care Team Providers Care Sales & Service Associate Name Role Phone Unavailable Primary Care Provider [...] of 2) 2016 COVID-19 Vaccine ( - season) 2025 RSV Vaccine 50 years and old er and Patients (1 - 1-dose 75+ series) 2041
== END 2025-07-29 17:07 | disposition home or self-care (01) ==
PROVIDERS: PCP Internal Medicine; Visit Provider Family Medicine
DX: H53.8 Other visual disturbances (principal)
CPT/HCPCS: 99213